=== PATIENT | female | born 1960 | race Caucasian/White ===

== ENCOUNTER 2017-05-25 14:25 | Emergency (ER) | payer SELFPAY ==
[2017-05-25] MEDS ORDERED: HUMULIN R 100 UNIT/ML VIAL SC ONE (14:26)
[2017-05-25] MEDS ORDERED: 0.9 % SODIUM CHLORIDE 1,000 ML BAG IV ONE ×2 (14:36→16:04)
--- NOTE | 2017-05-25 14:43 | Emergency Department Record ---
History of Present Illness - General Chief Complaint: Back Pain/Injury Stated Complaint: BACK SPASMS,LOW BLOOD PRESSURE Time Seen by Provider: 05/25/17 14:35 Source: Patient Mode of Arrival: Ambulatory Limitations: No limitations - History of Present Illness Initial comments: 57 yo female presents with multiple concerns. She is a known diabetic with IBS. She has had a cough for about 10 days. The cough has been non productive. No fevers. She has had 3 days of nausea and vomiting intermittently with some abdominal cramps. She has had urinary frequency. Vaginal discharge. back spasms. She has not been on any prescription for her diabetes for several months due to no medical insurance. Her blood sugar has been elevated today to over 300. She was seen in the [facility] care and sent to the ED. She has been lightheaded with standing. No syncope. -: Days(s) Location: Other Radiation: Non-Radiating Quality: Other Consistency: Constant Improves with: None Worsens with: Other Associated Symptoms: Denies other symptoms - [place] Coma Scale Eye Response: (4) Open spontaneously Motor Response: (6) Obeys commands Verbal Response: (5) Oriented [place] Total: 15 - Related Data Previous Rx's Medication Instructions Recorded Glipizide 5 mg PO DAILY #30 tablet 05/25/17 Metronidazole [Flagyl] 500 mg PO BID #13 tablet 05/25/17 Ondansetron [Zofran Odt] 4 mg PO Q8H #15 tab.rapdis 05/25/17 Allergies Allergy/AdvReac Type Severity Reaction Status Date / Time codeine Allergy Intermediate hives Verified 05/25/17 14:36 meperidine HCl [From Demerol] Allergy Intermediate hives Verified 05/25/17 14:36 milk Allergy Intermediate ABDOMINAL Verified 05/25/17 14:36 PAIN morphine Allergy Intermediate HIVES Verified 05/25/17 14:36 Penicillins Allergy Intermediate hives Verified 05/25/17 14:36 sulfamethoxazole Allergy vomiting Verified 05/25/17 14:36 [From Bactrim] trimethoprim [From Bactrim] Allergy vomiting Verified 05/25/17 14:36 Travel Screening - Travel/Exposure Within Last 30 Days Have you traveled within the last 30 days?: No Review of Systems Constitutional: Reports: Malaise, Weakness. Denies: Chills Eyes: Denies: Eye discharge, Eye pain, Vision change ENT: Reports: Congestion Respiratory: Reports: Cough, Dyspnea. Denies: Hemoptysis, Stridor, Wheezes Cardiovascular: Denies: Chest pain, Palpitations, Syncope Endocrine: Reports: Fatigue, Polyuria Gastrointestinal: Reports: Abdominal pain, Diarrhea, Nausea, Vomiting Genitourinary: Reports: Dysuria, Urgency Musculoskeletal: Reports: Back pain. Denies: Arthralgia, Joint swelling, Myalgia Skin: Denies: Bruising, Change in color, Rash Neurological: Denies: Numbness, Weakness Psychiatric: Denies: Anxiety Hematological/Lymphatic: Denies: Blood Clots, Easy bleeding, Easy bruising, Swollen glands Past Medical History - SOCIAL HISTORY Smoking Status: Light tobacco smoker (<10/day) - RESPIRATORY Hx Respiratory Disorders: Yes Hx Asthma: Yes Hx COPD: Yes - CARDIOVASCULAR Hx Cardio Disorders: Yes Hx Hypertension: Yes Comment:: high cholesterol - NEURO Hx Neuro Disorders: No - GI Hx GI Disorders: Yes Hx Reflux: Yes Hx Irritable Bowel: Yes - Hx Genitourinary Disorders: Yes Hx UTI: Yes - ENDOCRINE Hx Endocrine Disorders: Yes Hx Diabetes: Yes (Borderline) - MUSCULOSKELETAL Hx Musculoskeletal Disorders: Yes Hx Arthritis: Yes - PSYCH Hx Psych Problems: Yes Hx Anxiety: Yes Hx Depression: Yes - HEMATOLOGY/ONCOLOGY Hx Hematology/Oncology Disorders: No Family Medical History Any Significant Family History?: Yes Family Hx Comment (NOT TO BE USED IN PLACE OF ITEMS BELOW): mom w/ sclerderma Hx Cancer: Brother/Sister Hx Stroke: Father Physical Exam - General General Appearance: Alert, Oriented x3, Cooperative, No acute distress Limitations: No limitations - Head Head exam: Normal inspection - Eye Eye exam: Normal appearance, PERRL. negative: Conjunctival injection - ENT ENT exam: Normal exam, Mucous membranes moist Ear exam: Normal external inspection Nasal Exam: Discharge. negative: Normal inspection Mouth exam: Normal external inspection Teeth exam: Normal inspection Throat exam: Normal inspection. negative: Tonsillar erythema, Tonsillar exudate - Neck Neck exam: Normal inspection, Full ROM. negative: Tenderness - Respiratory Respiratory exam: Decreased breath sounds, Rhonchi. negative: Normal lung sounds bilaterally, Accessory muscle use, Prolonged expiratory - Cardiovascular Cardiovascular Exam: Regular rate, Normal rhythm, Normal heart sounds - GI/Abdominal GI/Abdominal exam: Soft. negative: Guarding, Rebound, Rigid, Tenderness - Rectal Rectal exam: Deferred - exam: Vaginal discharge, Vaginal erythema. negative: Adnexal tenderness (L) , Adnexal tenderness (R), Cervical discharge, cervical motion tenderness, Normal speculum exam, Vaginal bleeding - Extremities Extremities exam: Normal inspection, Full ROM, Normal capillary refill. negative: Tenderness - Back Back exam: Reports: Normal inspection, Full ROM. Denies: Muscle spasm, Rash noted, Tenderness - Neurological Neurological exam: Alert, Normal gait, Oriented X3 - Psychiatric Psychiatric exam: Normal affect, Normal mood - Skin Skin exam: Dry, Intact, Normal color, Warm Course Vital Signs 05/25/17 14:29 Temperature 97.8 F Pulse Rate 91 H Respiratory 18 Rate Blood Pressure 126/88 Pulse Ox 96 - Reevaluation(s) Reevaluation #1: 05/25/17 15:13 no acute changes on the CBC the pH is 7.36 05/25/17 15:36 The labs were reviewed No acute changes on the CBC Sodium 130 AG 20 Normal HCO3 Mg 2.1 Lipase 66 pH is 7.36 05/25/17 16:29 Wet Prep: Clue Cells 05/25/17 16:48 The second liter of fluid was complete The glucose is down to 231 No ketones Normal pH No DKA given no acidosis. Medical Decision Making - Lab Data Result diagrams: 05/25/17 14:55 05/25/17 14:55 Disposition Disposition: Discharge Clinical Impression: Hyperglycemia, Bacterial vaginosis, Bronchitis Disposition: Home, Self-Care Condition: (1) Good Additional Instructions: Call for close follow up of you ER visit with your doctor Return if worse, fevers, vomiting or concerns Start the Glipizide daily as directed Check your sugars daily. Prescriptions: Glipizide 5 mg PO DAILY #30 tablet Metronidazole [Flagyl] 500 mg PO BID #13 tablet Ondansetron [Zofran Odt] 4 mg PO Q8H #15 tab.rapdis Referrals: AMI RIVERA PA [Primary Care Provider] - Forms: Patient Portal Access Time of Disposition: 17:05 Quality - Quality Measures Quality Measures: N/A - Blood Pressure Screening Does Patient Have Any of the Following: No Blood Pressure Classification: Pre-Hypertensive BP Reading Systolic Measurement: 126 Diastolic Measurement: 88 Screening for High Blood Pressure: < Pre-Hypertensive BP, F/U Documented > [ [id number]] Pre-Hypertensive Follow-up Interventions: Referral to alternative/primary care provider.
[2017-05-25 15:05] LABS: BASO % 0.9 % (0-6); EOS % 1.1 % (0-6); GRAN % 71.2 % (47-80); HEMATOCRIT 42.2 % (35.0-47.0); HEMOGLOBIN 15.2 gm/dl (11.6-16.0); MEAN CELL VOLUME 87.4 fl (81-97); MEAN CORPUSCULAR HEMOGLOBIN 31.5 pg (27-33); MEAN PLATELET VOLUME 10.4 fl (7.4-10.4); MONO % 7.8 % (0-9); PLATELET COUNT 412 K/uL (130-400); RED BLOOD COUNT 4.83 M/uL (3.80-5.40); RED CELL DISTRIBUTION WIDTH 12.4 % (11.5-14.5); WHITE BLOOD COUNT W/O DIFF 11.7 K/uL (4.2-12.2)
[2017-05-25 15:09] LABS: URINE APPEARANCE CLEAR; URINE BILIRUBIN NEGATIVE (NEGATIVE); URINE BLOOD NEGATIVE (NEGATIVE); URINE COLOR YELLOW; URINE KETONE 40 mg/dL (NEGATIVE); URINE LEUKOCYTE ESTERASE NEGATIVE (NEGATIVE); URINE NITRITE NEGATIVE (NEGATIVE); URINE PROTEIN TRACE (NEGATIVE); URINE UROBILINOGEN 0.2 E.U./dL (0.20 - 1.00)
[2017-05-25 15:13] LABS: URINE GLUCOSE (UA) >=1000 mg/dL (NEGATIVE)
[2017-05-25 15:14] LABS: URINE BACTERIA 1+; URINE MUCUS MODERATE; URINE RBC 0 - 2 (NONE SEEN); URINE WBC 0 - 2 (0-2/hpf)
[2017-05-25 15:23] LABS: BLOOD UREA NITROGEN 27 mg/dL (6-20); CREATININE 0.9 mg/dL (0.5-0.9); EST GLOMERULAR FILTRATION RATE > 60 mL/min; TOTAL PROTEIN 7.9 g/dL (6.6-8.7)
[2017-05-25 15:25] LABS: GLUCOSE,RANDOM 327 mg/dL (74-109)
[2017-05-25 15:28] LABS: ALBUMIN 5.3 g/dL (4.0-5.0); ALKALINE PHOSPHATASE 114 U/L (35-104); ALT/SGPT 14 U/L (<33); AST/SGOT 13 U/L (10.0-35.0); LIPASE 66 U/L (13-60)
[2017-05-25] MEDS ORDERED: HUMULIN R 100 UNIT/ML VIAL SQ ONE (15:49)
[2017-05-25 16:25] LABS: ACETONE,SERUM NEGATIVE (NEGATIVE)
[2017-05-25] MEDS ORDERED: METRONIDAZOLE 250 MG TABLET PO ONE (16:30)
--- NOTE | 2017-05-26 14:42 | RADIOLOGY REPORT ---
EXAM: CHEST, TWO VIEWS HISTORY: COUGH. TECHNIQUE: Frontal and lateral views of the chest were obtained. Comparison: Prior chest from 02/25/17. FINDINGS: The heart size is normal. The lungs are clear. No pneumothorax. IMPRESSION: NEGATIVE CHEST EXAMINATION. JOB NUMBER: [id number] MTDD
== END 2017-05-25 17:26 | disposition home or self-care (01) ==
LOC: ER 14:25
DX: E11.65 Type 2 diabetes mellitus with hyperglycemia (principal); N76.0 Acute vaginitis; J20.9 Acute bronchitis, unspecified; R42 Dizziness and giddiness; I10 Essential (primary) hypertension; Z79.84 Long term (current) use of oral hypoglycemic drugs; F17.210 Nicotine dependence, cigarettes, uncomplicated
CPT/HCPCS: 99284 ×2; 96372; 83735; 82800; 83690; 85025; 80053; 36416; 81001; 82009; 82948; 71046; Q0111; J1815; 87210; J7030

== ENCOUNTER 2017-12-09 07:08 | Day surgery (SDC) | payer OTHER ==
[2017-12-09] MEDS ORDERED: LIDOCAINE 2% MDV (20MG/ML) 20ML VIAL IV ONE (07:09)
[2017-12-09] MEDS ORDERED: PROPOFOL 10 MG/ML VIAL IV ONE (07:09)
--- NOTE | 2017-12-14 15:49 | Operative Note ---
DATE OF SURGERY: OPERATION: COLONOSCOPY with cold snare polypectomy. PREOPERATIVE DIAGNOSIS: Personal history of colon polyps and family history of colon cancer. POSTOPERATIVE DIAGNOSIS: Sigmoid colon polyp. SPECIMENS: Sigmoid colon. ESTIMATED BLOOD LOSS: Minimum. PREPARATION QUALITY: Excellent. COMPLICATIONS: None apparent. PROCEDURE: After informed consent was obtained from the patient, she was placed in the left lateral decubitus position in the endoscopy suite, sedated and monitored by the department of anesthesia. Digital rectal examination was unremarkable. A well-lubricated [id number] colonoscope was inserted into the rectum and advanced to the cecum. Preparation quality was excellent. The cecum, ileocecal valve, ascending colon, transverse colon, and descending colon were unremarkable. The sigmoid colon revealed a 5 mm sessile polyp which was removed with a cold snare. The polyp was retrieved. Bleeding was minimal. The remainder of the sigmoid colon and rectum were unrevealing. J-turn views of the anorectum were unremarkable. The endoscope was straightened, the rectal ampulla deflated, and the endoscope was removed. RECOMMENDATIONS: The patient should resume her medications and diet. She should undergo repeat exam in 3-5 years pending tissue histology. As always, thank you for allowing me to participate in the healthcare of your patients. CC: AIDA Shi
== END 2017-12-09 09:08 | disposition home or self-care (01) ==
LOC: HOP 07:08
PROVIDERS: ATTEND Internal Medicine Gastroenterology
DX: Z12.11 Encounter for screening for malignant neoplasm of colon (principal); Z80.0 Family history of malignant neoplasm of digestive organs; Z86.010 Personal history of colon polyps; D12.5 Benign neoplasm of sigmoid colon; E11.9 Type 2 diabetes mellitus without complications; I10 Essential (primary) hypertension; E78.00 Pure hypercholesterolemia, unspecified; F32.9 Major depressive disorder, single episode, unspecified

== ENCOUNTER 2018-03-24 12:37 | Inpatient (IN) | payer OTHER ==
--- NOTE | 2018-03-24 12:58 | Emergency Department Record ---
History of Present Illness - General Chief complaint: Nausea, Vomiting, Diarrhea Stated complaint: VOMITING Time Seen by Provider: 03/24/18 12:53 Source: Patient Mode of Arrival: Ambulatory Limitations: No limitations - History of Present Illness Initial comments: 57 yo female presents with cough for about three weeks. The cough has been loose and rattles with wheezing. She was tested and negative for influenza. She saw her PCP and the [facility]. She has completed antibiotics twice and steroids twice. No fever. NO chest pain. In the last day she has developed nausea and vomiting as well. No diarrhea. No abdominal pain. She has COPD and is a smoker. MD complaint: Nausea, Vomiting Onset/Timin -: Week(s) Description of Vomiting: Other Associated Abdominal Pain: Yes Location: Diffuse Radiation: None Severity: Mild Severity scale (1-10): 4 Quality: Other Consistency: Constant Improves with: None Worsens with: None Associated Symptoms: Cough, Fever/chills, Loss of appetite, Nausea/vomiting, Weakness, Other - Related Data Allergies Allergy/AdvReac Type Severity Reaction Status Date / Time meperidine HCl [From Demerol] Allergy Intermediate hives Verified 03/24/18 13:12 milk Allergy Intermediate ABDOMINAL Verified 03/24/18 13:12 PAIN morphine Allergy Intermediate HIVES Verified 03/24/18 13:12 Penicillins Allergy Intermediate hives Verified 03/24/18 13:12 codeine Allergy HIVES Verified 03/24/18 13:12 sulfamethoxazole Allergy HIVES Verified 03/24/18 13:12 [From Bactrim] trimethoprim [From Bactrim] Allergy vomiting Verified 03/24/18 13:12 Travel Screening - Travel/Exposure Within Last 30 Days Have you traveled within the last 30 days?: No - Travel/Exposure Within Last Year Have you traveled outside the [place] in the last year?: No - Additonal Travel Details Have you been exposed to anyone with a communicable illness?: No - Travel Symptoms Symptom Screening: Fever (Subjective), Weakness, Vomiting, Stomach Pain, Chills Review of Systems Constitutional: Reports: Malaise, Weakness. Denies: Chills Eyes: Denies: Eye discharge ENT: Reports: Congestion Respiratory: Reports: Cough, Dyspnea, Wheezes Cardiovascular: Denies: Chest pain, Edema, Palpitations, Syncope Endocrine: Reports: Fatigue Gastrointestinal: Reports: Nausea, Vomiting. Denies: Abdominal pain, Constipation, Diarrhea, Hematemesis, Hematochezia, Melena Genitourinary: Denies: Dysuria, Urgency Musculoskeletal: Denies: Arthralgia, Back pain, Myalgia Skin: Denies: Bruising, Change in color, Rash Neurological: Denies: Headache Psychiatric: Denies: Anxiety Hematological/Lymphatic: Denies: Blood Clots, Easy bleeding, Easy bruising Past Medical History - SOCIAL HISTORY Smoking Status: Light tobacco smoker (<10/day) Alcohol Use: None Drug Use: None - RESPIRATORY Hx Respiratory Disorders: Yes Hx Asthma: Yes Hx COPD: Yes - CARDIOVASCULAR Hx Cardio Disorders: Yes Hx Hypertension: Yes Hx Irregular Heartbeat: Yes (slight irregular-no treatment) Comment:: high cholesterol - NEURO Hx Neuro Disorders: No Hx Headaches: Yes - GI Hx GI Disorders: Yes Hx Abdominal Pain: Yes (with IBS) Hx Reflux: Yes Hx Irritable Bowel: Yes Hx Rectal Bleeding: Yes (occ) Hx Wt Loss/Wt Gain: Yes (75 lb loss over 1 year) Hx of Polyps: Yes Comment:: constipation/diarrhea with IBS - Hx Genitourinary Disorders: Yes Hx UTI: Yes - ENDOCRINE Hx Endocrine Disorders: Yes Hx Diabetes: Yes (Borderline) - MUSCULOSKELETAL Hx Musculoskeletal Disorders: Yes Hx Arthritis: Yes - PSYCH Hx Psych Problems: Yes Hx Anxiety: Yes Hx Depression: Yes - HEMATOLOGY/ONCOLOGY Hx Hematology/Oncology Disorders: No Family Medical History Any Significant Family History?: Yes Family Hx Comment (NOT TO BE USED IN PLACE OF ITEMS BELOW): mom w/ sclerderma Hx Cancer: Brother/Sister *Cancer Comment: sister-melanoma, 1/2 brother-colon cancer Hx Depression: Brother/Sister Hx Heart Disease: Father *Heart Comment: chf Hx HTN: Brother/Sister Hx Resp Disorders: Mother Hx Stroke: Father *Stroke Comment: x3 Physical Exam - General General Appearance: Alert, Oriented x3, Cooperative, No acute distress Limitations: No limitations - Head Head exam: Atraumatic - Eye Eye exam: Normal appearance, PERRL - ENT ENT exam: Normal exam, Mucous membranes moist Ear exam: Normal external inspection Nasal Exam: Normal inspection Mouth exam: Normal external inspection - Neck Neck exam: Normal inspection, Full ROM. negative: Tenderness - Respiratory Respiratory exam: Accessory muscle use, Decreased breath sounds, Prolonged expiratory, Rhonchi, Wheezes. negative: Normal lung sounds bilaterally, Respiratory distress, Stridor - Cardiovascular Cardiovascular Exam: Regular rate, Normal rhythm, Normal heart sounds Peripheral Pulses: 2+: Radial (R), Radial (L) - GI/Abdominal GI/Abdominal exam: Soft. negative: Tenderness - Rectal Rectal exam: Deferred - exam: Deferred - Extremities Extremities exam: Normal inspection, Full ROM, Normal capillary refill. negative: Tenderness - Back Back exam: Denies: CVA tenderness (R), CVA tenderness (L) - Neurological Neurological exam: Alert, Oriented X3 - Psychiatric Psychiatric exam: Normal affect, Normal mood - Skin Skin exam: Dry, Intact, Normal color, Warm Course Vital Signs 03/24/18 12:44 Temperature 97.7 F Pulse Rate 109 H Respiratory 18 Rate Blood Pressure 94/69 Pulse Ox 98 - Reevaluation(s) Reevaluation #1: 03/24/18 13:44 CBC reviewed WBC is 23.7 UA spec gravity 1.030 with ketones and protein. 03/24/18 14:10 Delays will occur in lab due to the analyzer is down. Sample will be sent to [facility]. 03/24/18 14:12 Lab called. Lactic acid can no be run and will not be accepted at an outside lab due to time delays in running the sample it will be invalid. 03/24/18 14:18 2nd liter ordered given UA findings and BP. Patient informed about lab delays. 03/24/18 14:19 The CXR was read as negative 03/24/18 14:34 Accu check 169. Labs pending. 03/24/18 15:13 Normal pH at 7.33 Acetone Negative Send out labs pending. 03/24/18 16:55 The labs were finally reported due to being sent out with [facility] down analyzer CR is 1.6 BUN is 36 Glucose is 210. I recommend admission for dehydration, renal insufficiency, and reactive airway disease 03/24/18 19:20 The repeat lactic acid improved to 4.4 form 5.6 The vitals at this time are normal and she is afebrile Jane Ruiz was up dated Her Metformin will be held as well Medical Decision Making - Lab Data Result diagrams: 03/24/18 13:15 03/24/18 13:15 Disposition Disposition: Admit Clinical Impression: Reactive airway disease, COPD (chronic obstructive pulmonary disease), Dehydration Disposition: Still a Patient at [facility] Decision to Admit: Admit from ER Decision to Admit Date: 03/24/18 Decision to Admit Time: 16:57 Condition: (1) Good Time of Disposition: 16:58 Quality - Quality Measures Quality Measures: N/A - Blood Pressure Screening Does Patient Have Any of the Following: Active Dx of HTN Blood Pressure Classification: Normal BP Reading Systolic Measurement: 94 Diastolic Measurement: 69 Screening for High Blood Pressure: Patient Exclusion, Hx of HTN [G9744]
[2018-03-24] MEDS ORDERED: ONDANSETRON HCL IV 4 MG/2 ML VIAL IVP ONE (13:07)
[2018-03-24] MEDS ORDERED: METHYLPREDNISOLONE PF 125MG/VIAL IVP ONE (13:07)
[2018-03-24] MEDS ORDERED: IPRATROPIUM/ALBUTEROL (0.5MG/3MG) NEB INH ONE (13:07)
[2018-03-24] MEDS ORDERED: 0.9 % SODIUM CHLORIDE 1,000 ML BAG IV ONE ×2 (13:08→14:06)
[2018-03-24 13:29] LABS: HEMATOCRIT 39.1 % (35.0-47.0); HEMOGLOBIN 13.3 gm/dl (11.6-16.0); MEAN CELL VOLUME 90.7 fl (81-97); MEAN CORPUSCULAR HEMOGLOBIN 30.9 pg (27-33); MEAN PLATELET VOLUME 9.2 fl (7.4-10.4); PLATELET COUNT 475 K/uL (130-400); RED BLOOD COUNT 4.31 M/uL (3.80-5.40); RED CELL DISTRIBUTION WIDTH 12.6 % (11.5-14.5); URINE APPEARANCE CLEAR; URINE BILIRUBIN SMALL (NEGATIVE); URINE BLOOD NEGATIVE (NEGATIVE); URINE COLOR YELLOW; URINE KETONE 15 mg/dL (NEGATIVE); URINE LEUKOCYTE ESTERASE TRACE (NEGATIVE); URINE NITRITE NEGATIVE (NEGATIVE); URINE UROBILINOGEN 0.2 E.U./dL (0.20 - 1.00)
[2018-03-24 13:34] LABS: WHITE BLOOD COUNT W/O DIFF 23.7 K/uL (4.2-12.2)
[2018-03-24 13:37] LABS: URINE RBC NONE SEEN (NONE SEEN); URINE WBC 0 - 2 (0-2/hpf)
[2018-03-24 13:55] LABS: PLATELET ESTIMATE NORMAL (NORMAL)
[2018-03-24 14:53] LABS: ACETONE,SERUM NEGATIVE (NEGATIVE)
[2018-03-24] MEDS ORDERED: CLINDAMYCIN 600MG/50ML PREMIX 600 MG/50 ML BAG IVPB ONE (15:18)
[2018-03-24 16:50] LABS: CREATININE 1.6 mg/dL (0.5-0.9)
[2018-03-24 16:54] LABS: LACTIC ACID 5.6 mmol/L (0.5-2.2)
[2018-03-24] MEDS ORDERED: ALBUTEROL SULFATE (0.083%) 2.5 MG/3 ML NEB INH PRN (18:33)
[2018-03-24] MEDS ORDERED: ATORVASTATIN 20 MG TABLET PO SCH (18:33)
[2018-03-24] MEDS ORDERED: ONDANSETRON HCL IV 4 MG/2 ML VIAL IVP PRN (18:33)
[2018-03-24] MEDS ORDERED: BENZONATATE 100 MG CAPSULE PO PRN (18:33)
[2018-03-24] MEDS ORDERED: METHYLPREDNISOLONE PF 125MG/VIAL IVP SCH (18:33)
[2018-03-24] MEDS: CEFTRIAXONE 1GM/50ML BAG 1 GM/50 ML BAG IVPB SCH (20:49)
[2018-03-24] MEDS: IPRATROPIUM/ALBUTEROL (0.5MG/3MG) NEB INH SCH ×2 (21:03)
[2018-03-24] MEDS ORDERED: GLIPIZIDE 5 MG TABLET PO SCH (22:00)
[2018-03-24] MEDS ORDERED: METFORMIN ER HCL 500 MG TAB.ER.24H PO SCH (22:00)
[2018-03-24] MEDS: BUPROPION HCL 150 MG TAB.SR.12H PO SCH (22:01)
[2018-03-24] MEDS: ACETAMINOPHEN 325 MG TAB PO PRN (22:06)
[2018-03-24] MEDS: DIPHENHYDRAMINE HCL 25 MG CAPSULE PO SCH (22:12)
[2018-03-25] MEDS: IPRATROPIUM/ALBUTEROL (0.5MG/3MG) NEB INH SCH ×3 (02:00→10:01)
[2018-03-25] MEDS: 0.9 % SODIUM CHLORIDE 1000ML 1,000 ML IV PRN ×2 (04:09→13:11)
[2018-03-25] MEDS: METHYLPREDNISOLONE PF 125MG/VIAL IVP SCH ×3 (05:27→21:35)
[2018-03-25 06:48] LABS: HEMATOCRIT 31.6 % (35.0-47.0); HEMOGLOBIN 10.7 gm/dl (11.6-16.0); MEAN CELL VOLUME 91.6 fl (81-97); MEAN CORPUSCULAR HGB CONC 33.9 g/dl (32-36); MEAN PLATELET VOLUME 9.2 fl (7.4-10.4); PLATELET COUNT 327 K/uL (130-400); RED BLOOD COUNT 3.45 M/uL (3.80-5.40); RED CELL DISTRIBUTION WIDTH 12.6 % (11.5-14.5); WHITE BLOOD COUNT W/O DIFF 16.2 K/uL (4.2-12.2)
[2018-03-25 07:02] LABS: ALB/GLOB RATIO 1.7 (1.1-1.8); ALBUMIN 4.2 g/dL (4.0-5.0); ALKALINE PHOSPHATASE 78 U/L (45-87); ALT/SGPT 22 U/L (<33); AST/SGOT 11 U/L (10.0-35.0); BLOOD UREA NITROGEN 24 mg/dL (6-20); CREATININE 0.7 mg/dL (0.5-0.9); EST GLOMERULAR FILTRATION RATE > 60 mL/min; GLUCOSE,RANDOM 238 mg/dL (74-109); TOTAL PROTEIN 6.7 g/dL (6.6-8.7)
--- NOTE | 2018-03-25 07:15 | RADIOLOGY REPORT ---
EXAM: CHEST, TWO VIEWS HISTORY: DIFFICULTY IN BREATHING. TECHNIQUE: Frontal and lateral views of the chest were performed. Comparison: 03/18/18. FINDINGS: The heart size is normal. The lung restrepo are clear. No infiltrate or pleural effusion. The osseous structures are normal. IMPRESSION: NEGATIVE CHEST EXAMINATION. JOB NUMBER: [id number] MTDD
--- NOTE | 2018-03-25 08:14 | History & Physical ---
History of Present Illness - Date of Service Date of Service for History & Physical: 03/25/18 - History of Present Illness Admitting Diagnosis: COPD, Vomiting, Dehydration History of Present Illness: 57 yo female presents for admission for COPD exacerbation, lactic acidosis, ERIC , and dehydration Reports 3 weeks of cough, wheezing and more recently N/V. Denies abd pain, diarrhea, or fever/chills. Has failed outpatient treatment of 2 rounds of steroids and 2 rounds of antibiotics. PMH COPD, smoker, HTN, DM. 03/24/18 Pt presented to ER for cough, N/V, and malaise. CXR read as negative (awaiting official report). BP 94/69, HR 109, RR 18, 98% RA, 97.7F. BP Labs were delayed r/t equipment malfunctions in lab. WBC 23.7, Hgb 13.3, Hct 39.1, Plt 475, Neutrophils 81 (bands 1) Na 135, K 4.3, Cl 89, Co224, Anion Gap 22, BUN 36, Creatinine 1.6, GFR 36, glucose 210, Ca 11 Lactic Acid 5.6, repeated 4.4 (4 hours later after fluids) UA indicates dehydration with protein, glucose, ketones, and specific gravity > 1.030, trace leuk BC x2 pending, Pt given 2 L NS, Zofran 4mg IVP, Solumedrol 125mg IVP, DuoNeb Orders started by ER, Rocephin 1GM to start inpt, solumedrol 60mg IVP qd and resume glipizide in the AM. Repeat labs, continue NS @125, nausea meds PRN. RN given instructions to monitor BP after abx infusion completed. 03/25/18 Pt resting in bed, mild distress with coughing but no n/v since starting IVF. Lactic acid has improved to 3.1, RFTs normalizing at BUN 24, Creatinine 0.7, GFR >60. Continue to hold metformin and restarting glipizide. Continue IVF, Rocephin, IV steroids, and alb neb tx. Adding Incruse qd. Pt has milk allergy but reports mild symptoms and can tolerate cheese and other milk products. Will monitor for systemic issues. PCP Hiral Lopez Travel Screening - Travel/Exposure Within Last 30 Days Have you traveled within the last 30 days?: No - Travel/Exposure Within Last Year Have you traveled outside the [place] in the last year?: No - Additonal Travel Details Have you been exposed to anyone with a communicable illness?: No - Travel Symptoms Symptom Screening: Fever (Subjective), Weakness, Vomiting, Stomach Pain, Chills Review of Systems Constitutional: Reports: Malaise, Weakness. Denies: Chills Eyes: Denies: Eye discharge ENT: Reports: Congestion Respiratory: Reports: Cough, Dyspnea, Wheezes Cardiovascular: Denies: Chest pain, Edema, Palpitations, Syncope Endocrine: Reports: Fatigue Gastrointestinal: Reports: Nausea, Vomiting. Denies: Abdominal pain, Constipation, Diarrhea, Hematemesis, Hematochezia, Melena Genitourinary: Denies: Dysuria, Urgency Musculoskeletal: Denies: Arthralgia, Back pain, Myalgia Skin: Denies: Bruising, Change in color, Rash Neurological: Denies: Headache Psychiatric: Denies: Anxiety Hematological/Lymphatic: Denies: Blood Clots, Easy bleeding, Easy bruising Past Medical History - SOCIAL HISTORY Smoking Status: Light tobacco smoker (<10/day) Alcohol Use: None Drug Use: None - RESPIRATORY Hx Respiratory Disorders: Yes Hx Asthma: Yes Hx COPD: Yes - CARDIOVASCULAR Hx Cardio Disorders: Yes Hx Hypertension: Yes Hx Irregular Heartbeat: Yes (slight irregular-no treatment) Comment:: high cholesterol - NEURO Hx Neuro Disorders: No Hx Headaches: Yes - GI Hx GI Disorders: Yes Hx Abdominal Pain: Yes (with IBS) Hx Reflux: Yes Hx Irritable Bowel: Yes Hx Rectal Bleeding: Yes (occ) Hx Wt Loss/Wt Gain: Yes (75 lb loss over 1 year) Hx of Polyps: Yes Comment:: constipation/diarrhea with IBS - Hx Genitourinary Disorders: Yes Hx UTI: Yes - ENDOCRINE Hx Endocrine Disorders: Yes Hx Diabetes: Yes (Borderline) - MUSCULOSKELETAL Hx Musculoskeletal Disorders: Yes Hx Arthritis: Yes - PSYCH Hx Psych Problems: Yes Hx Anxiety: Yes Hx Depression: Yes - HEMATOLOGY/ONCOLOGY Hx Hematology/Oncology Disorders: No Family Medical History Any Significant Family History?: Yes Family Hx Comment (NOT TO BE USED IN PLACE OF ITEMS BELOW): mom w/ sclerderma Hx Cancer: Brother/Sister *Cancer Comment: sister-melanoma, 1/2 brother-colon cancer Hx Depression: Brother/Sister Hx Heart Disease: Father *Heart Comment: chf Hx HTN: Brother/Sister Hx Resp Disorders: Mother Hx Stroke: Father *Stroke Comment: x3 H&P Meds/Allergies - Allergies Allergies: Allergies Allergy/AdvReac Type Severity Reaction Status Date / Time meperidine HCl [From Demerol] Allergy Intermediate hives Verified 03/24/18 13:12 milk Allergy Intermediate ABDOMINAL Verified 03/24/18 13:12 PAIN morphine Allergy Intermediate HIVES Verified 03/24/18 13:12 Penicillins Allergy Intermediate hives Verified 03/24/18 13:12 codeine Allergy HIVES Verified 03/24/18 13:12 sulfamethoxazole Allergy HIVES Verified 03/24/18 13:12 [From Bactrim] trimethoprim [From Bactrim] Allergy vomiting Verified 03/24/18 13:12 - Home Medications Home Medications Medication Instructions Recorded Confirmed Last Taken Atorvastatin Calcium 20 mg PO QHS 03/25/18 03/25/18 Unknown Glipizide 5 mg PO BIDWM 03/25/18 03/25/18 Unknown - Active Medications Active Medications: Current Medications Acetaminophen (Tylenol 325mg) 650 mg PO Q6H PRN PRN Reason: PAIN - MILD(1-4)/FEVER Last Admin: 03/24/18 22:06 Dose: 650 mg Albuterol Sulfate (Albuterol Sulfate) 2.5 mg INH RESP.Q4H PRN PRN Reason: DIFFICULTY IN BREATHING Albuterol/Ipratropium (Duoneb) 3 ml INH RESP.Q4H.[facility] Last Admin: 03/25/18 06:10 Dose: 3 ml Aspirin (Ecotrin (Ec)) 81 mg PO DAILY [facility] Atorvastatin Calcium (Lipitor) 20 mg PO QD [facility] Last Admin: 03/24/18 22:02 Dose: 20 mg Benzonatate (Tessalon) 100 mg PO TID PRN PRN Reason: COUGH Bupropion HCl (Wellbutrin Sr) 150 mg PO BID [facility] Last Admin: 03/24/18 22:01 Dose: 150 mg Diphenhydramine HCl (Benadryl Capsule) 50 mg PO QHS [facility] Last Admin: 03/24/18 22:12 Dose: 50 mg Enoxaparin Sodium (Lovenox) 40 mg SQ DAILY [facility] Glipizide (Glucotrol) 5 mg PO BID [facility] Sodium Chloride () 1,000 mls @ 125 mls/hr IV .Q8H PRN PRN Reason: LARGE VOLUME IV Last Admin: 03/25/18 04:09 Dose: 125 mls/hr CEFTRIAXONE 1GM/50ML BAG (Ceftriaxone 1 Gm-D5w Bag) 1 gm in 50 mls @ 100 mls/ hr IVPB Q12H [facility] Last Infusion: 03/24/18 22:04 Dose: Infused Methylprednisolone Sodium Succinate (Solu-Medrol) 60 mg IVP Q8H [facility] Last Admin: 03/25/18 05:27 Dose: 60 mg Ondansetron HCl (Zofran) 4 mg IVP Q6H PRN PRN Reason: NAUSEA Physical Exam - Vital Signs Vital Signs: Vital Signs - Last 24 Hrs Temp Pulse Pulse Resp BP BP BP 03/25/18 06:10 89 18 03/25/18 04:00 97.4 F L 98 H 17 152/66 03/25/18 02:00 80 18 03/24/18 21:55 97.5 F L 94 H 18 119/65 03/24/18 21:03 94 H 20 03/24/18 21:00 94 H 18 03/24/18 18:58 97.2 F L 91 H 16 139/80 03/24/18 16:15 79 17 115/74 03/24/18 15:21 111/57 03/24/18 14:45 103/49 03/24/18 13:55 98 H 19 86/59 03/24/18 12:44 97.7 F 109 H 18 94/69 Pulse Ox 03/25/18 06:10 03/25/18 04:00 96 03/25/18 02:00 97 03/24/18 21:55 96 03/24/18 21:03 97 03/24/18 21:00 03/24/18 18:58 95 03/24/18 16:15 97 03/24/18 15:21 03/24/18 14:45 03/24/18 13:55 03/24/18 12:44 98 - General General Appearance: Alert, Oriented x3, Cooperative, No acute distress Limitations: No limitations - Head Head exam: Atraumatic - Eye Eye exam: Normal appearance, PERRL - ENT ENT exam: Normal exam, Mucous membranes moist Ear exam: Normal external inspection Nasal Exam: Normal inspection Mouth exam: Normal external inspection - Neck Neck exam: Normal inspection, Full ROM. negative: Tenderness - Respiratory Respiratory exam: Accessory muscle use, Decreased breath sounds, Prolonged expiratory, Rhonchi, Wheezes. negative: Normal lung sounds bilaterally, Respiratory distress, Stridor - Cardiovascular Cardiovascular Exam: Regular rate, Normal rhythm, Normal heart sounds Peripheral Pulses: 2+: Radial (R), Radial (L), Dorsalis Pedis (R), Dorsalis Pedis (L) - GI/Abdominal GI/Abdominal exam: Soft. negative: Tenderness - Rectal Rectal exam: Deferred - exam: Deferred - Extremities Extremities exam: Normal inspection, Full ROM, Normal capillary refill. negative: Tenderness - Back Back exam: Denies: CVA tenderness (R), CVA tenderness (L) - Neurological Neurological exam: Alert, Oriented X3 - Psychiatric Psychiatric exam: Normal affect, Normal mood - Skin Skin exam: Dry, Intact, Normal color, Warm Results - Labs Result Diagrams: 03/25/18 06:30 03/25/18 06:30 Labs Last 24 Hours: Laboratory Results - last 24 hr 03/24/18 03/24/18 03/24/18 13:15 13:15 13:15 WBC 23.7 H* RBC 4.31 Hgb 13.3 Hct 39.1 MCV 90.7 MCH 30.9 MCHC 34.0 RDW 12.6 Plt Count 475 H MPV 9.2 Neutrophils % 81.0 H Band Neutrophils % 1.0 Eosinophils % Not Reportable Basophils % Not Reportable Lymphocytes 14.0 L Monocytes 4.0 Basophils Platelet Estimate Normal RBC Morphology Normal Eosinophil Count VBG pH Sodium 135 L Potassium 4.3 Chloride 89 L Carbon Dioxide 24.0 Anion Gap 22.0 H BUN 36 H Creatinine 1.6 H Estimated GFR 36 POC Glucose Random Glucose 210 H Lactic Acid Calcium 11.0 H Total Bilirubin AST ALT Alkaline Phosphatase Troponin T Total Protein Albumin Globulin Albumin/Globulin Ratio Urine Color Yellow Urine Appearance Clear Urine pH 5.0 Ur Specific [place] >= 1.030 Urine Protein 30 mg/dl H Urine Glucose (UA) 100 mg/dl H Urine Ketones 15 mg/dl H Urine Blood Negative Urine Nitrite Negative Urine Bilirubin Small H Urine Urobilinogen 0.2 Ur Leukocyte Esterase Trace H Urine RBC None seen Urine WBC 0 - 2 Ur Epithelial Cells 3 - 6 Acetone, Qual 03/24/18 03/24/18 03/24/18 14:25 14:25 18:34 WBC RBC Hgb Hct MCV MCH MCHC RDW Plt Count MPV Neutrophils % Band Neutrophils % Eosinophils % Basophils % Lymphocytes Monocytes Basophils Platelet Estimate RBC Morphology Eosinophil Count VBG pH 7.33 Sodium Potassium Chloride Carbon Dioxide Anion Gap BUN Creatinine Estimated GFR POC Glucose Random Glucose Lactic Acid 5.6 H 4.4 H Calcium Total Bilirubin AST ALT Alkaline Phosphatase Troponin T < 0.010 Total Protein Albumin Globulin Albumin/Globulin Ratio Urine Color Urine Appearance Urine pH Ur Specific [place] Urine Protein Urine Glucose (UA) Urine Ketones Urine Blood Urine Nitrite Urine Bilirubin Urine Urobilinogen Ur Leukocyte Esterase Urine RBC Urine WBC Ur Epithelial Cells Acetone, Qual Negative 03/25/18 03/25/18 03/25/18 06:30 06:30 06:30 WBC 16.2 H RBC 3.45 L Hgb 10.7 L Hct 31.6 L MCV 91.6 MCH 31.0 MCHC 33.9 RDW 12.6 Plt Count 327 MPV 9.2 Neutrophils % 80.0 Band Neutrophils % 0.0 Eosinophils % Not Reportable Basophils % Not Reportable Lymphocytes 14.0 L Monocytes 6.0 Basophils 0.0 Platelet Estimate RBC Morphology Eosinophil Count 0.0 VBG pH Sodium 135 L Potassium 4.2 Chloride 98 Carbon Dioxide 20.0 L Anion Gap 17.0 H BUN 24 H Creatinine 0.7 Estimated GFR > 60 POC Glucose Random Glucose 238 H Lactic Acid 3.1 H Calcium 8.8 Total Bilirubin 0.20 AST 11 ALT 22 Alkaline Phosphatase 78 Troponin T Total Protein 6.7 Albumin 4.2 Globulin 2.5 Albumin/Globulin Ratio 1.7 Urine Color Urine Appearance Urine pH Ur Specific [place] Urine Protein Urine Glucose (UA) Urine Ketones Urine Blood Urine Nitrite Urine Bilirubin Urine Urobilinogen Ur Leukocyte Esterase Urine RBC Urine WBC Ur Epithelial Cells Acetone, Qual 03/25/18 07:00 WBC RBC Hgb Hct MCV MCH MCHC RDW Plt Count MPV Neutrophils % Band Neutrophils % Eosinophils % Basophils % Lymphocytes Monocytes Basophils Platelet Estimate RBC Morphology Eosinophil Count VBG pH Sodium Potassium Chloride Carbon Dioxide Anion Gap BUN Creatinine Estimated GFR POC Glucose Cancelled Random Glucose Lactic Acid Calcium Total Bilirubin AST ALT Alkaline Phosphatase Troponin T Total Protein Albumin Globulin Albumin/Globulin Ratio Urine Color Urine Appearance Urine pH Ur Specific [place] Urine Protein Urine Glucose (UA) Urine Ketones Urine Blood Urine Nitrite Urine Bilirubin Urine Urobilinogen Ur Leukocyte Esterase Urine RBC Urine WBC Ur Epithelial Cells Acetone, Qual - Imaging and Cardiology Chest x-ray Status: Pending VTE H&P Assessment - Risk for VTE Risk for VTE: Yes Risk Level: Moderate Risk Assessment Date: 03/24/18 Risk Assessment Time: 21:00 VTE Orders Placed or Will Be Placed: Yes Plan - Inpatient Certification Inpatient Certification: Admit to inpatient care: Based on my medical assessment, after consideration of patient's risk factors (age, co-morbidities and patient presenting symptoms and acuity), I expect that this patient will remain in the hospital greater than or equal to two midnights and that the services needed warrant inpatient care because: Patient Risk Factors: hypotension, renal insufficiency, electrolyte imbalance Estimated length of stay: The patient may reasonably be expected to be discharged or transferred to a hospital within 96 hours after admission to [facility]. Services needed: telemetry, IVF, IV antibiotics, repeat lab monitoring Post hospital care (if known): [] I certify that my determination is in accordance with my understanding of Medicare requirements for reasonable and necessary inpatient services. 03/25/18 11:12 - Detailed Diagnosis and Plan (1) COPD (chronic obstructive pulmonary disease) Current Visit: Yes Status: Acute Base Code: J44.9 - CHRONIC OBSTRUCTIVE PULMONARY DISEASE, UNSPECIFIED Comment: 03/25/18 -IV rocpehin 1gm BID -alb neb, adding Incruse qd -CXR neg PNA -tx as COPD exacerbation (2) Lactic acidosis Current Visit: Yes Status: Acute Base Code: E87.2 - ACIDOSIS Comment: -lactic acid 5.6, 2L NS and repeat 4.4 -3.1 this AM, continue IVF and IV ABX, metformin D/C'd -BC preliminary negative (3) Renal insufficiency Current Visit: Yes Status: Acute Base Code: N28.9 - DISORDER OF KIDNEY AND URETER, UNSPECIFIED Comment: 03/25/18 -BUN 36, creatin 1.6, GFR 36 at admission -Repeat AM labs BUN 24, creatinin 0.7, GFR >60 -Continue IVF at 125 r/t continued lactic acidosis, repeat lactic acid 1600, will decrease fluids to 75 after lactic acid normalization -Nursing instructed to monitor for fluid overload with SOB, crackling lung sounds, or peripheral edema (4) Dehydration Current Visit: Yes Status: Acute Base Code: E86.0 - DEHYDRATION Comment: -2l NS bolus in ER, NS @ 125 continuous -encouage PO intake -monitor electrolytes and urine output (5) Full code status Current Visit: Yes Status: Acute Base Code: Z78.9 - OTHER SPECIFIED HEALTH STATUS Comment: 03/25/18 -full code (6) DVT prophylaxis Current Visit: Yes Status: Acute Base Code: [id number] - Comment: 03/25/18 -lovenox 40mg SQ qd
[2018-03-25] MEDS: CEFTRIAXONE 1GM/50ML BAG 1 GM/50 ML BAG IVPB SCH ×2 (08:30→20:10)
[2018-03-25] MEDS: GLIPIZIDE 5 MG TABLET PO SCH ×2 (09:33→20:10)
[2018-03-25] MEDS: ASPIRIN 81 MG TABEC PO SCH (09:33)
[2018-03-25] MEDS: BUPROPION HCL 150 MG TAB.SR.12H PO SCH ×2 (09:33→21:38)
[2018-03-25] MEDS: ENOXAPARIN 40 MG/0.4 ML SYR SQ SCH (09:34)
[2018-03-25] MEDS ORDERED: UMECLIDINIUM BROMIDE (INCRUSE) 62.5MCG IH SCH (10:45)
[2018-03-25] MEDS: UMECLIDINIUM BROMIDE (INCRUSE) 62.5MCG IH SCH (14:10)
[2018-03-25] MEDS: DIPHENHYDRAMINE HCL 25 MG CAPSULE PO SCH (21:34)
[2018-03-25] MEDS: ATORVASTATIN 20 MG TABLET PO SCH (21:36)
[2018-03-25] MEDS: ACETAMINOPHEN 325 MG TAB PO PRN (21:39)
[2018-03-25] MEDS ORDERED: DIPHENHYDRAMINE HCL 25 MG CAPSULE PO SCH (22:00)
[2018-03-26] MEDS: METHYLPREDNISOLONE PF 125MG/VIAL IVP SCH (05:01)
[2018-03-26 07:40] LABS: HEMATOCRIT 33.4 % (35.0-47.0); HEMOGLOBIN 11.3 gm/dl (11.6-16.0); MEAN CELL VOLUME 94.4 fl (81-97); MEAN CORPUSCULAR HEMOGLOBIN 31.9 pg (27-33); MEAN CORPUSCULAR HGB CONC 33.8 g/dl (32-36); MEAN PLATELET VOLUME 11.4 fl (7.4-10.4); RED BLOOD COUNT 3.54 M/uL (3.80-5.40); RED CELL DISTRIBUTION WIDTH 13.1 % (11.5-14.5); WHITE BLOOD COUNT W/O DIFF 12.6 K/uL (4.2-12.2)
[2018-03-26 07:56] LABS: BLOOD UREA NITROGEN 15 mg/dL (6-20); CREATININE 0.5 mg/dL (0.5-0.9); EST GLOMERULAR FILTRATION RATE > 60 mL/min; GLUCOSE,RANDOM 269 mg/dL (74-109)
[2018-03-26] MEDS ORDERED: 0.9 % SODIUM CHLORIDE 1000ML 1,000 ML IV PRN (08:19)
[2018-03-26] MEDS: ACETAMINOPHEN 325 MG TAB PO PRN ×3 (08:44→21:10)
[2018-03-26] MEDS: CEFTRIAXONE 1GM/50ML BAG 1 GM/50 ML BAG IVPB SCH ×2 (08:44→19:57)
[2018-03-26] MEDS: GLIPIZIDE 5 MG TABLET PO SCH ×2 (08:44→17:55)
[2018-03-26] MEDS: ASPIRIN 81 MG TABEC PO SCH (09:16)
[2018-03-26] MEDS: BUPROPION HCL 150 MG TAB.SR.12H PO SCH ×2 (09:16→21:11)
[2018-03-26] MEDS: ENOXAPARIN 40 MG/0.4 ML SYR SQ SCH (09:16)
[2018-03-26] MEDS: UMECLIDINIUM BROMIDE (INCRUSE) 62.5MCG IH SCH (09:35)
[2018-03-26] MEDS: PREDNISONE 20 MG TAB PO SCH (13:11)
[2018-03-26] MEDS: HYDROXYZINE PAMOATE 25 MG CAPSULE PO PRN ×2 (13:17→21:11)
--- NOTE | 2018-03-26 14:40 | Physician Progress Note ---
Subjective - Date Date of Physician Progress Note: 03/27/18 Objective - Vital Signs Vital Signs: Vital Signs - Last 24 Hrs Temp Pulse Pulse Resp BP BP Pulse Ox 03/26/18 09:39 82 18 97 03/26/18 09:30 97.5 F L 91 H 16 134/81 134/81 98 03/26/18 09:00 91 H 18 03/26/18 05:00 97.5 F L 79 16 151/79 96 03/25/18 21:00 97.5 F L 96 H 16 127/67 97 - General General Appearance: Alert, Oriented x3, Cooperative, No acute distress Limitations: No limitations - Head Head exam: Atraumatic - Eye Eye exam: Normal appearance, PERRL - ENT ENT exam: Normal exam, Mucous membranes moist Ear exam: Normal external inspection Nasal Exam: Normal inspection Mouth exam: Normal external inspection - Neck Neck exam: Normal inspection, Full ROM. negative: Tenderness - Respiratory Respiratory exam: Accessory muscle use, Decreased breath sounds, Prolonged expiratory, Rhonchi, Wheezes. negative: Normal lung sounds bilaterally, Respiratory distress, Stridor - Cardiovascular Cardiovascular Exam: Regular rate, Normal rhythm, Normal heart sounds Peripheral Pulses: 2+: Radial (R), Radial (L), Dorsalis Pedis (R), Dorsalis Pedis (L) - GI/Abdominal GI/Abdominal exam: Soft. negative: Tenderness - Rectal Rectal exam: Deferred - exam: Deferred - Extremities Extremities exam: Normal inspection, Full ROM, Normal capillary refill. negative: Tenderness - Back Back exam: Denies: CVA tenderness (R), CVA tenderness (L) - Neurological Neurological exam: Alert, Oriented X3 - Psychiatric Psychiatric exam: Normal affect, Normal mood - Skin Skin exam: Dry, Intact, Normal color, Warm Assessment and Plan - Assessment and Plan (1) COPD (chronic obstructive pulmonary disease) Current Visit: Yes Status: Acute Base Code: J44.9 - CHRONIC OBSTRUCTIVE PULMONARY DISEASE, UNSPECIFIED Comment: 03/25/18 -IV rocpehin 1gm BID -alb neb, adding Incruse qd -CXR neg PNA -tx as COPD exacerbation 03/26/18 -started Incruse, tolerating well, reports decreased sputum production -continue rocephin IVP, lactic acid and WBC still slightly elevated -IVF d/c'd encouraged PO intake (2) Lactic acidosis Current Visit: Yes Status: Acute Base Code: E87.2 - ACIDOSIS Comment: -lactic acid 5.6, 2L NS and repeat 4.4 -3.1 this AM, continue IVF and IV ABX, metformin D/C'd -BC preliminary negative 03/26/18 -Lactic acid 2.2 this AM -D/C IVF, encouraged PO intake -BC results neg, pending final results (3) Renal insufficiency Current Visit: Yes Status: Acute Base Code: N28.9 - DISORDER OF KIDNEY AND URETER, UNSPECIFIED Comment: 03/25/18 -BUN 36, creatin 1.6, GFR 36 at admission -Repeat AM labs BUN 24, creatinin 0.7, GFR >60 -Continue IVF at 125 r/t continued lactic acidosis, repeat lactic acid 1600, will decrease fluids to 75 after lactic acid normalization -Nursing instructed to monitor for fluid overload with SOB, crackling lung sounds, or peripheral edema 03/26/18 -RFTs improved BUN 15, Cr 0.5, GFR>60 -making urine, weakness improved but not resovled (4) Dehydration Current Visit: Yes Status: Acute Base Code: E86.0 - DEHYDRATION Comment: -2l NS bolus in ER, NS @ 125 continuous -encouage PO intake -monitor electrolytes and urine output 03/26/18 -IVF at 125 decreased r/t improved PO intake, RFTs and decreased lactic acid -Glucose and electrolytes normalizing (5) Full code status Current Visit: Yes Status: Acute Base Code: Z78.9 - OTHER SPECIFIED HEALTH STATUS Comment: 03/26/18 -full code (6) DVT prophylaxis Current Visit: Yes Status: Acute Base Code: [id number] - Comment: 03/26/18 -lovenox 40mg SQ qd Results - Labs Result Diagrams: 03/27/18 07:45 03/27/18 07:45 Labs Last 24 Hours: Laboratory Results - last 24 hr 03/25/18 03/26/18 03/26/18 16:50 07:30 07:30 WBC 12.6 H RBC 3.54 L Hgb 11.3 L Hct 33.4 L MCV 94.4 MCH 31.9 MCHC 33.8 RDW 13.1 Plt Count Not Reportable MPV 11.4 H Neutrophils % 92.0 H Eosinophils % Not Reportable Basophils % Not Reportable Lymphocytes 6.0 L Monocytes 2.0 Sodium 134 L Potassium 4.7 H Chloride 101 Carbon Dioxide 17.0 L Anion Gap 16.0 BUN 15 Creatinine 0.5 Estimated GFR > 60 Random Glucose 269 H Lactic Acid 3.1 H Cancelled Calcium 8.6 03/26/18 07:30 WBC RBC Hgb Hct MCV MCH MCHC RDW Plt Count MPV Neutrophils % Eosinophils % Basophils % Lymphocytes Monocytes Sodium Potassium Chloride Carbon Dioxide Anion Gap BUN Creatinine Estimated GFR Random Glucose Lactic Acid 2.2 Calcium DVT/PE Assessment - Risk for VTE Risk for VTE: No Risk Level: Moderate Risk Assessment Date: 03/24/18 Risk Assessment Time: 21:00 VTE Orders Placed or Will Be Placed: Yes - Active Medicaitons Current Medications: Current Medications Acetaminophen (Tylenol 325mg) 650 mg PO Q6H PRN PRN Reason: PAIN - MILD(1-4)/FEVER Last Admin: 03/26/18 08:44 Dose: 650 mg Albuterol Sulfate (Albuterol Sulfate) 2.5 mg INH RESP.Q4H PRN PRN Reason: DIFFICULTY IN BREATHING Aspirin (Ecotrin (Ec)) 81 mg PO DAILY [facility] Last Admin: 03/26/18 09:16 Dose: 81 mg Atorvastatin Calcium (Lipitor) 20 mg PO QHS [facility] Last Admin: 03/25/18 21:36 Dose: 20 mg Benzonatate (Tessalon) 100 mg PO TID PRN PRN Reason: COUGH Bupropion HCl (Wellbutrin Sr) 150 mg PO BID [facility] Last Admin: 03/26/18 09:16 Dose: 150 mg Enoxaparin Sodium (Lovenox) 40 mg SQ DAILY [facility] Last Admin: 03/26/18 09:16 Dose: 40 mg Glipizide (Glucotrol) 5 mg PO BIDWM [facility] Last Admin: 03/26/18 08:44 Dose: 5 mg Hydroxyzine Pamoate (Vistaril) 25 mg PO Q6H PRN PRN Reason: ANXIETY Last Admin: 03/26/18 13:17 Dose: 25 mg CEFTRIAXONE 1GM/50ML BAG (Ceftriaxone 1 Gm-D5w Bag) 1 gm in 50 mls @ 100 mls/ hr IVPB Q12H [facility] Last Infusion: 03/26/18 10:00 Dose: Infused Ondansetron HCl (Zofran) 4 mg IVP Q6H PRN PRN Reason: NAUSEA Prednisone (Prednisone 20mg) 40 mg PO DAILY[facility] Last Admin: 03/26/18 13:11 Dose: 40 mg AMI Plan - Labs Result Diagrams: 03/27/18 07:45 03/27/18 07:45
[2018-03-26] MEDS: MAGNESIUM HYDROXIDE 30 ML UDC PO PRN (16:28)
[2018-03-26] MEDS: ATORVASTATIN 20 MG TABLET PO SCH (21:12)
[2018-03-27] MEDS: ACETAMINOPHEN 325 MG TAB PO PRN (04:47)
[2018-03-27 07:53] LABS: BASO % 0.1 % (0-6); EOS % 0.4 % (0-6); GRAN % 63.1 % (47-80); HEMATOCRIT 33.4 % (35.0-47.0); HEMOGLOBIN 11.1 gm/dl (11.6-16.0); LYMPH % 28.6 % (16-45); MEAN CORPUSCULAR HGB CONC 33.2 g/dl (32-36); MEAN PLATELET VOLUME 9.1 fl (7.4-10.4); MONO % 7.8 % (0-9); PLATELET COUNT 327 K/uL (130-400); RED BLOOD COUNT 3.63 M/uL (3.80-5.40); RED CELL DISTRIBUTION WIDTH 12.7 % (11.5-14.5); WHITE BLOOD COUNT W/O DIFF 13.5 K/uL (4.2-12.2)
[2018-03-27 07:55] LABS: MEAN CORPUSCULAR HEMOGLOBIN 30.5 pg (27-33)
[2018-03-27] MEDS: PREDNISONE 20 MG TAB PO SCH (07:59)
[2018-03-27] MEDS: HYDROXYZINE PAMOATE 25 MG CAPSULE PO PRN (07:59)
[2018-03-27] MEDS: GLIPIZIDE 5 MG TABLET PO SCH (08:00)
[2018-03-27 08:11] LABS: BLOOD UREA NITROGEN 18 mg/dL (6-20); CREATININE 0.6 mg/dL (0.5-0.9); EST GLOMERULAR FILTRATION RATE > 60 mL/min; GLUCOSE,RANDOM 213 mg/dL (74-109)
[2018-03-27] MEDS: ASPIRIN 81 MG TABEC PO SCH (09:13)
[2018-03-27] MEDS: BUPROPION HCL 150 MG TAB.SR.12H PO SCH (09:13)
[2018-03-27] MEDS: ENOXAPARIN 40 MG/0.4 ML SYR SQ SCH (09:14)
[2018-03-27] MEDS: MAGNESIUM HYDROXIDE 30 ML UDC PO PRN (09:20)
[2018-03-27] MEDS: UMECLIDINIUM BROMIDE (INCRUSE) 62.5MCG IH SCH (09:54)
[2018-03-27] MEDS: CEFTRIAXONE 1GM/50ML BAG 1 GM/50 ML BAG IVPB SCH (09:58)
[2018-03-27] MEDS ORDERED: CEFDINIR 300 MG CAPSULE PO SCH (10:00)
--- NOTE | 2018-03-27 10:01 | Discharge Summary ---
Providers Discharge Summary Date: 03/27/18 Date of admission: 03/24/18 18:50 Expected Date of Discharge: 03/27/18 Attending physician: WICHO PORTILLO Primary care physician: Hiral Lopez N.P. Physical Exam - Vital Signs Vital Signs: Vital Signs - Last 24 Hrs Temp Pulse Resp BP BP Pulse Ox 03/27/18 08:03 97.8 F 70 18 180/89 96 03/27/18 01:00 97.5 F L 71 16 159/89 96 03/26/18 17:00 97.6 F 76 18 158/80 96 - General General Appearance: Alert, Oriented x3, Cooperative, No acute distress Limitations: No limitations - Head Head exam: Atraumatic - Eye Eye exam: Normal appearance, PERRL - ENT ENT exam: Normal exam, Mucous membranes moist Ear exam: Normal external inspection Nasal Exam: Normal inspection Mouth exam: Normal external inspection - Neck Neck exam: Normal inspection, Full ROM. negative: Tenderness - Respiratory Respiratory exam: Decreased breath sounds, Wheezes. negative: Normal lung sounds bilaterally, Prolonged expiratory, Respiratory distress, Rhonchi, Stridor - Cardiovascular Cardiovascular Exam: Regular rate, Normal rhythm, Normal heart sounds Peripheral Pulses: 2+: Radial (R), Radial (L), Dorsalis Pedis (R), Dorsalis Pedis (L) - GI/Abdominal GI/Abdominal exam: Soft. negative: Tenderness - Rectal Rectal exam: Deferred - exam: Deferred - Extremities Extremities exam: Normal inspection, Full ROM, Normal capillary refill. negative: Tenderness - Back Back exam: Denies: CVA tenderness (R), CVA tenderness (L) - Neurological Neurological exam: Alert, Oriented X3 - Psychiatric Psychiatric exam: Normal affect, Normal mood - Skin Skin exam: Dry, Intact, Normal color, Warm Hospitalization - Hospitalization Admission Diagnosis: COPD, Vomiting, Dehydration - Problem List/Discharge Diagnosis (1) COPD (chronic obstructive pulmonary disease) Current Visit: Yes Status: Acute Base Code: J44.9 - CHRONIC OBSTRUCTIVE PULMONARY DISEASE, UNSPECIFIED Comment: 03/25/18 -IV rocpehin 1gm BID -alb neb, adding Incruse qd -CXR neg PNA -tx as COPD exacerbation 03/26/18 -started Incruse, tolerating well, reports decreased sputum production -continue rocephin IVP, lactic acid and WBC still slightly elevated -IVF d/c'd encouraged PO intake 03/27/18 -lung sounds improved, mild wheezing noted -cough has decreased, small amt of production -tolerating ADLs in room -req d/c. f/u 03/30/18 1320 already scheduled -transition to Cefdinir 300mg BID for 5 more days (2) Lactic acidosis Current Visit: Yes Status: Acute Base Code: E87.2 - ACIDOSIS Comment: -lactic acid 5.6, 2L NS and repeat 4.4 -3.1 this AM, continue IVF and IV ABX, metformin D/C'd -BC preliminary negative 03/26/18 -Lactic acid 2.2 this AM -D/C IVF, encouraged PO intake -BC results neg, pending final results 03/27/18 -Lactic acide 107 -Good PO intake -continue to hold metformin until seen by PCP (3) Renal insufficiency Current Visit: Yes Status: Acute Base Code: N28.9 - DISORDER OF KIDNEY AND URETER, UNSPECIFIED Comment: 03/25/18 -BUN 36, creatin 1.6, GFR 36 at admission -Repeat AM labs BUN 24, creatinin 0.7, GFR >60 -Continue IVF at 125 r/t continued lactic acidosis, repeat lactic acid 1600, will decrease fluids to 75 after lactic acid normalization -Nursing instructed to monitor for fluid overload with SOB, crackling lung sounds, or peripheral edema 03/26/18 -RFTs improved BUN 15, Cr 0.5, GFR>60 -making urine, weakness improved but not resovled 03/27/18 --RFTs return and maintaining normal function -good PO intake (4) Dehydration Current Visit: Yes Status: Acute Base Code: E86.0 - DEHYDRATION Comment: -2l NS bolus in ER, NS @ 125 continuous -encouage PO intake -monitor electrolytes and urine output 03/26/18 -IVF at 125 decreased r/t improved PO intake, RFTs and decreased lactic acid -Glucose and electrolytes normalizing 03/27/18 -electrolytes have normalized -continue to encouage PO intake (5) Full code status Current Visit: Yes Status: Acute Base Code: Z78.9 - OTHER SPECIFIED HEALTH STATUS Comment: 03/27/18 -full code (6) DVT prophylaxis Current Visit: Yes Status: Acute Base Code: [id number] - Diagnosis Priority: Secondary Comment: 03/27/18 -lovenox 40mg SQ qd - Hospitalization Course Disposition: Home, Self-Care Hospital Course: 57 yo female presents for admission for COPD exacerbation, lactic acidosis, ERIC , and dehydration Reports 3 weeks of cough, wheezing and more recently N/V. Denies abd pain, diarrhea, or fever/chills. Has failed outpatient treatment of 2 rounds of steroids and 2 rounds of antibiotics. PMH COPD, smoker, HTN, DM. 03/24/18 Pt presented to ER for cough, N/V, and malaise. CXR read as negative (awaiting official report). BP 94/69, HR 109, RR 18, 98% RA, 97.7F. BP Labs were delayed r/t equipment malfunctions in lab. WBC 23.7, Hgb 13.3, Hct 39.1, Plt 475, Neutrophils 81 (bands 1) Na 135, K 4.3, Cl 89, Co224, Anion Gap 22, BUN 36, Creatinine 1.6, GFR 36, glucose 210, Ca 11 Lactic Acid 5.6, repeated 4.4 (4 hours later after fluids) UA indicates dehydration with protein, glucose, ketones, and specific gravity > 1.030, trace leuk BC x2 pending, Pt given 2 L NS, Zofran 4mg IVP, Solumedrol 125mg IVP, DuoNeb Orders started by ER, Rocephin 1GM to start inpt, solumedrol 60mg IVP qd and resume glipizide in the AM. Repeat labs, continue NS @125, nausea meds PRN. RN given instructions to monitor BP after abx infusion completed. 03/25/18 Pt resting in bed, mild distress with coughing but no n/v since starting IVF. Lactic acid has improved to 3.1, RFTs normalizing at BUN 24, Creatinine 0.7, GFR >60. Continue to hold metformin and restarting glipizide. Continue IVF, Rocephin, IV steroids, and alb neb tx. Adding Incruse qd. Pt has milk allergy but reports mild symptoms and can tolerate cheese and other milk products. Will monitor for systemic issues. PCP Hiral Lopez Procedures: Imaging and X-Rays 03/24/18 13:07 CHEST 2 VIEWS [RAD] Stat Cardiology Procedures 03/24/18 13:01 Text Transcriber NOW 03/24/18 18:33 Text Transcriber .Continuous Abnormal Labs: Abnormal Lab Results 03/24/18 03/24/18 03/24/18 Range/Units 13:15 13:15 13:15 WBC 23.7 H* (4.2-12.2) K/uL RBC (3.80-5.40) M/uL Hgb (11.6-16.0) gm/dl Hct (35.0-47.0) % Plt Count 475 H (130-400) K/uL MPV (7.4-10.4) fl Neutrophils % 81.0 H (47-80) % Lymphocytes 14.0 L (16-45) % Sodium 135 L (136-145) mmol/L Potassium (3.4-4.5) mmol/L Chloride 89 L (98-107) mmol/L Carbon Dioxide (22-29) mmol/L Anion Gap 22.0 H (7-16) BUN 36 H (6-20) mg/dL Creatinine 1.6 H (0.5-0.9) mg/dL Random Glucose 210 H (74-109) mg/dL Lactic Acid (0.5-2.2) mmol/L Calcium 11.0 H (8.6-10.0) mg/dL Urine Protein 30 mg/dl H (NEGATIVE) Urine Glucose (UA) 100 mg/dl H (NEGATIVE) Urine Ketones 15 mg/dl H (NEGATIVE) Urine Bilirubin Small H (NEGATIVE) Ur Leukocyte Esterase Trace H (NEGATIVE) 03/24/18 03/24/18 03/25/18 Range/Units 14:25 18:34 06:30 WBC (4.2-12.2) K/uL RBC (3.80-5.40) M/uL Hgb (11.6-16.0) gm/dl Hct (35.0-47.0) % Plt Count (130-400) K/uL MPV (7.4-10.4) fl Neutrophils % (47-80) % Lymphocytes (16-45) % Sodium 135 L (136-145) mmol/L Potassium (3.4-4.5) mmol/L Chloride (98-107) mmol/L Carbon Dioxide 20.0 L (22-29) mmol/L Anion Gap 17.0 H (7-16) BUN 24 H (6-20) mg/dL Creatinine (0.5-0.9) mg/dL Random Glucose 238 H (74-109) mg/dL Lactic Acid 5.6 H 4.4 H (0.5-2.2) mmol/L Calcium (8.6-10.0) mg/dL Urine Protein (NEGATIVE) Urine Glucose (UA) (NEGATIVE) Urine Ketones (NEGATIVE) Urine Bilirubin (NEGATIVE) Ur Leukocyte Esterase (NEGATIVE) 03/25/18 03/25/18 03/25/18 Range/Units 06:30 06:30 16:50 WBC 16.2 H (4.2-12.2) K/uL RBC 3.45 L (3.80-5.40) M/uL Hgb 10.7 L (11.6-16.0) gm/dl Hct 31.6 L (35.0-47.0) % Plt Count (130-400) K/uL MPV (7.4-10.4) fl Neutrophils % (47-80) % Lymphocytes 14.0 L (16-45) % Sodium (136-145) mmol/L Potassium (3.4-4.5) mmol/L Chloride (98-107) mmol/L Carbon Dioxide (22-29) mmol/L Anion Gap (7-16) BUN (6-20) mg/dL Creatinine (0.5-0.9) mg/dL Random Glucose (74-109) mg/dL Lactic Acid 3.1 H 3.1 H (0.5-2.2) mmol/L Calcium (8.6-10.0) mg/dL Urine Protein (NEGATIVE) Urine Glucose (UA) (NEGATIVE) Urine Ketones (NEGATIVE) Urine Bilirubin (NEGATIVE) Ur Leukocyte Esterase (NEGATIVE) 03/26/18 03/26/18 03/27/18 Range/Units 07:30 07:30 07:45 WBC 12.6 H 13.5 H (4.2-12.2) K/uL RBC 3.54 L 3.63 L (3.80-5.40) M/uL Hgb 11.3 L 11.1 L (11.6-16.0) gm/dl Hct 33.4 L 33.4 L (35.0-47.0) % Plt Count (130-400) K/uL MPV 11.4 H (7.4-10.4) fl Neutrophils % 92.0 H (47-80) % Lymphocytes 6.0 L (16-45) % Sodium 134 L (136-145) mmol/L Potassium 4.7 H (3.4-4.5) mmol/L Chloride (98-107) mmol/L Carbon Dioxide 17.0 L (22-29) mmol/L Anion Gap (7-16) BUN (6-20) mg/dL Creatinine (0.5-0.9) mg/dL Random Glucose 269 H (74-109) mg/dL Lactic Acid (0.5-2.2) mmol/L Calcium (8.6-10.0) mg/dL Urine Protein (NEGATIVE) Urine Glucose (UA) (NEGATIVE) Urine Ketones (NEGATIVE) Urine Bilirubin (NEGATIVE) Ur Leukocyte Esterase (NEGATIVE) 03/27/18 Range/Units 07:45 WBC (4.2-12.2) K/uL RBC (3.80-5.40) M/uL Hgb (11.6-16.0) gm/dl Hct (35.0-47.0) % Plt Count (130-400) K/uL MPV (7.4-10.4) fl Neutrophils % (47-80) % Lymphocytes (16-45) % Sodium (136-145) mmol/L Potassium (3.4-4.5) mmol/L Chloride (98-107) mmol/L Carbon Dioxide (22-29) mmol/L Anion Gap (7-16) BUN (6-20) mg/dL Creatinine (0.5-0.9) mg/dL Random Glucose 213 H (74-109) mg/dL Lactic Acid (0.5-2.2) mmol/L Calcium (8.6-10.0) mg/dL Urine Protein (NEGATIVE) Urine Glucose (UA) (NEGATIVE) Urine Ketones (NEGATIVE) Urine Bilirubin (NEGATIVE) Ur Leukocyte Esterase (NEGATIVE) Condition at Discharge: (1) Good Discharge Diagnosis: COPD exacerbatin, lactic acidosis, dehydration, renal insufficiency Discharge Medications - Discharge Medications Prescriptions: Cefdinir 300 mg PO BID 5 Days #10 capsule Prednisone [Prednisone 20Mg] 40 mg PO DAILYWM 2 Days #8 tab Umeclidinium [place] (Incruse) [Incruse Ellipta] 1 puff IH DAILY #1 inhaler Home Medications: Ambulatory Orders Lactobacillus Combo No.10 [Probiotic] 1 each PO DAILY cap 03/07/18 [Last Taken Unknown] Atorvastatin Calcium 20 mg PO QHS 03/25/18 [Last Taken Unknown] Glipizide 5 mg PO BIDWM 03/25/18 [Last Taken Unknown] Acetaminophen [Tylenol 325Mg] 650 mg PO Q6H PRN tablet 03/27/18 [Last Taken Unknown] Cefdinir 300 mg PO BID 5 Days #10 capsule 03/27/18 [Last Taken Unknown] Glipizide [Glucotrol] 5 mg PO BIDWM tablet 03/27/18 [Last Taken Unknown] Hydroxyzine Pamoate [Vistaril] 25 mg PO Q6H PRN capsule 03/27/18 [Last Taken Unknown] Prednisone [Prednisone 20Mg] 40 mg PO DAILYWM 2 Days #8 tab 03/27/18 [Last Taken Unknown] Umeclidinium [place] (Incruse) [Incruse Ellipta] 1 puff IH DAILY #1 inhaler 09/07 [Last Taken Unknown] Discharge Plan - Discharge Instructions Additional Instructions: Follow up with your PCP, Hiral Lopez, at [facility] ([address], [place] [address], ) on 03/30/18 at 1: 20PM. Quality Measures - Quality Measures Quality Measures: Documentation of Current Medications in Medical Record, Screening for High Blood Pressure and F/U Documented - Current Medications Quality Measure: Measure #130: Documentation of Current Medications Documentation of Current Medications: <Current Medications Documented/Reviewed> [G8427] - Blood Pressure Screening Quality Measure: Screening for High Blood Pressure and Follow-Up Documented Does Patient Have Any of the Following: Active Dx of HTN Blood Pressure Classification: Normal BP Reading Systolic Measurement: 94 Diastolic Measurement: 69 Screening for High Blood Pressure: Patient Exclusion, Hx of HTN [G9744] - Elder Abuse Suspicion Index EASI Reference Information: Seth PAPPSA, Javier Dukes, Celso D, Crystal Shen.Development and validation of a tool to assist physicians identification of elder abuse: The Elder Abuse Suspicion Index (EASI ). Journal of Elder Abuse and Neglect, 2008; 20 (3): 276-300.
[2018-03-27] MEDS ORDERED: LISINOPRIL 20 MG TABLET PO ONE (10:09)
[2018-03-27] MEDS ORDERED: FLUCONAZOLE 100 MG TABLET PO ONE (10:23)
== END 2018-03-27 11:20 | disposition home or self-care (01) | DRG 191 ==
LOC: ER 12:37 → MEDSURG 18:20 → UNDOADMIN 18:20 → MEDSURG 18:50
PROVIDERS: ADMIT Internal Medicine; ATTEND Internal Medicine
DX: J44.9 Chronic obstructive pulmonary disease, unspecified (principal); E87.2 Acidosis; R05 Cough; N28.9 Disorder of kidney and ureter, unspecified; E86.0 Dehydration; J45.909 Unspecified asthma, uncomplicated; I10 Essential (primary) hypertension; E78.00 Pure hypercholesterolemia, unspecified; K58.9 Irritable bowel syndrome, unspecified; K21.9 Gastro-esophageal reflux disease without esophagitis; F17.210 Nicotine dependence, cigarettes, uncomplicated
CPT/HCPCS: 71046; 80048; 80053; 81001; 82009; 82800; 83605; 84484; 85025; 85027; 94640; 94760; 94761; 96361; 96374; 96375; 99223; 99239; 99285; J0696; J1650; J2405; J2930; J7030; J7512; J7613

== ENCOUNTER 2018-04-02 18:30 | Emergency (ER) | payer OTHER ==
[2018-04-02] MEDS ORDERED: 0.9 % SODIUM CHLORIDE 1,000 ML BAG IV ONE ×2 (18:38→19:34)
[2018-04-02 18:56] LABS: BASO % 0.4 % (0-6); EOS % 0.9 % (0-6); GRAN % 61.5 % (47-80); HEMATOCRIT 36.2 % (35.0-47.0); HEMOGLOBIN 12.7 gm/dl (11.6-16.0); LYMPH % 28.3 % (16-45); MEAN CORPUSCULAR HEMOGLOBIN 31.6 pg (27-33); MEAN CORPUSCULAR HGB CONC 35.1 g/dl (32-36); MEAN PLATELET VOLUME 9.5 fl (7.4-10.4); MONO % 8.9 % (0-9); PLATELET COUNT 355 K/uL (130-400); RED BLOOD COUNT 4.02 M/uL (3.80-5.40); RED CELL DISTRIBUTION WIDTH 12.9 % (11.5-14.5); WHITE BLOOD COUNT W/O DIFF 14.1 K/uL (4.2-12.2)
[2018-04-02 19:08] LABS: ACETONE,SERUM NEGATIVE (NEGATIVE); BLOOD UREA NITROGEN 21 mg/dL (6-20)
[2018-04-02 19:09] LABS: CREATININE 0.7 mg/dL (0.5-0.9); EST GLOMERULAR FILTRATION RATE > 60 mL/min; TOTAL PROTEIN 6.9 g/dL (6.6-8.7)
[2018-04-02 19:13] LABS: URINE APPEARANCE CLEAR; URINE BILIRUBIN NEGATIVE (NEGATIVE); URINE BLOOD TRACE-I (NEGATIVE); URINE COLOR YELLOW; URINE KETONE NEGATIVE (NEGATIVE); URINE LEUKOCYTE ESTERASE NEGATIVE (NEGATIVE); URINE NITRITE NEGATIVE (NEGATIVE); URINE PROTEIN NEGATIVE (NEGATIVE); URINE UROBILINOGEN 0.2 E.U./dL (0.20 - 1.00)
--- NOTE | 2018-04-02 19:13 | Emergency Department Record ---
History of Present Illness - General Stated Complaint: HIGH SUGAR Time Seen by Provider: 04/02/18 18:38 Source: Patient Mode of Arrival: Ambulatory Limitations: No limitations - History of Present Illness Initial comments: 57 yo female presents with elevated blood sugars for a few days. She was recently admitted to the hospital with COPD, on steroids. She had elected lactic acid then and her Metformin has been held. She has noticed she is drinking and urinating more. She denies any shortness of breath. No chest pain. No nausea, vomiting or diarrhea. Blood sugar has been around 500. -: Days(s) Location: Other Radiation: Non-Radiating Quality: Other (No pain) Improves with: None Worsens with: Other (Recent medication changes) Associated Symptoms: Denies other symptoms Treatments Prior to Arrival: None - Cameron Coma Scale Eye Response: (4) Open spontaneously Motor Response: (6) Obeys commands Verbal Response: (5) Oriented [place] Total: 15 - Related Data Home Medications Medication Instructions Recorded Confirmed Last Taken Glipizide 1 tab PO BID 04/02/18 04/02/18 04/02/18 18:00 Previous Rx's Medication Instructions Recorded Lisinopril 20 mg PO DAILY 14 Days #14 tablet 03/27/18 Allergies Allergy/AdvReac Type Severity Reaction Status Date / Time meperidine HCl [From Demerol] Allergy Intermediate hives Verified 04/02/18 18:39 milk Allergy Intermediate ABDOMINAL Verified 04/02/18 18:39 PAIN morphine Allergy Intermediate HIVES Verified 04/02/18 18:39 Penicillins Allergy Intermediate hives Verified 04/02/18 18:39 codeine Allergy HIVES Verified 04/02/18 18:39 sulfamethoxazole Allergy HIVES Verified 04/02/18 18:39 [From Bactrim] trimethoprim [From Bactrim] Allergy vomiting Verified 04/02/18 18:39 Review of Systems Constitutional: Denies: Chills, Fever, Weakness Eyes: Denies: Eye discharge ENT: Denies: Congestion Respiratory: Denies: Cough, Dyspnea Cardiovascular: Denies: Chest pain, Syncope Endocrine: Denies: Fatigue Gastrointestinal: Denies: Abdominal pain, Diarrhea, Nausea, Vomiting Past Medical History - SOCIAL HISTORY Smoking Status: Light tobacco smoker (<10/day) Drug Use: None - RESPIRATORY Hx Respiratory Disorders: Yes Hx Asthma: Yes Hx COPD: Yes - CARDIOVASCULAR Hx Cardio Disorders: Yes Hx Hypertension: Yes Hx Irregular Heartbeat: Yes (slight irregular-no treatment) Comment:: high cholesterol - NEURO Hx Neuro Disorders: No Hx Headaches: Yes - GI Hx GI Disorders: Yes Hx Abdominal Pain: Yes (with IBS) Hx Reflux: Yes Hx Irritable Bowel: Yes Hx Rectal Bleeding: Yes (occ) Hx Wt Loss/Wt Gain: Yes (75 lb loss over 1 year) Hx of Polyps: Yes Comment:: constipation/diarrhea with IBS - Hx Genitourinary Disorders: Yes Hx UTI: Yes - ENDOCRINE Hx Endocrine Disorders: Yes Hx Diabetes: Yes (Borderline) - MUSCULOSKELETAL Hx Musculoskeletal Disorders: Yes Hx Arthritis: Yes - PSYCH Hx Psych Problems: Yes Hx Anxiety: Yes Hx Depression: Yes - HEMATOLOGY/ONCOLOGY Hx Hematology/Oncology Disorders: No Family Medical History Family Hx Comment (NOT TO BE USED IN PLACE OF ITEMS BELOW): mom w/ sclerderma Hx Cancer: Brother/Sister *Cancer Comment: sister-melanoma, 1/2 brother-colon cancer Hx Depression: Brother/Sister Hx Heart Disease: Father *Heart Comment: chf Hx HTN: Brother/Sister Hx Resp Disorders: Mother Hx Stroke: Father *Stroke Comment: x3 Course - Reevaluation(s) Reevaluation #1: 04/02/18 19:18 Venous pH is normal at 7.37. No acidosis. CBC reviewed. WBC is 14 04/02/18 19:35 The Acetone is negative The HCO3 is 20 The AG is 17 Glucose is 450 Normal renal function Additional IVF and Insulin ordered 04/02/18 20:49 Repeat glucose down to 346. I discussed with her dosing changes of the Glipizide for the weekend. She has close follow up this week on Wednesday and Wednesday with her doctors. She appears well. She is not in DKA. No other current symptoms Medical Decision Making - Lab Data Result diagrams: 04/02/18 18:46 04/02/18 18:46 Disposition Disposition: Discharge Clinical Impression: Hyperglycemia Disposition: Home, Self-Care Condition: (1) Good Instructions: Diabetic Hyperglycemia (ED) Additional Instructions: You may take Glipizide 10mg in the AM and remain on 5mg in the evening Check your sugars 3 times daily Follow up on Wednesday and Wednesday as scheduled with your doctor to monitor your blood sugar. Return if you have any concerns with the blood sugar over the weekend. Forms: Patient Portal Access Quality - Quality Measures Quality Measures: N/A - Blood Pressure Screening Does Patient Have Any of the Following: Active Dx of HTN Blood Pressure Classification: Hypertensive Reading Systolic Measurement: 211 Diastolic Measurement: 109 Screening for High Blood Pressure: Patient Exclusion, Hx of HTN [G9744]
[2018-04-02 19:14] LABS: ALB/GLOB RATIO 1.6 (1.1-1.8); ALBUMIN 4.2 g/dL (4.0-5.0); ALKALINE PHOSPHATASE 91 U/L (45-87); ALT/SGPT 43 U/L (<33); AST/SGOT 17 U/L (10.0-35.0)
[2018-04-02 19:15] LABS: URINE GLUCOSE (UA) >=1000 mg/dL (NEGATIVE)
[2018-04-02 19:24] LABS: GLUCOSE,RANDOM 450 mg/dL (74-109)
[2018-04-02] MEDS ORDERED: HUMULIN R 100 UNIT/ML VIAL SQ ONE ×2 (19:34→20:51)
== END 2018-04-02 22:22 | disposition home or self-care (01) ==
LOC: ER 18:30
DX: E11.65 Type 2 diabetes mellitus with hyperglycemia (principal); R42 Dizziness and giddiness; R06.02 Shortness of breath; J44.9 Chronic obstructive pulmonary disease, unspecified; F17.210 Nicotine dependence, cigarettes, uncomplicated; Z79.84 Long term (current) use of oral hypoglycemic drugs
CPT/HCPCS: 36416; 80053; 81003; 82009; 82800; 82948; 85025; 96372; 99284; J7030

== ENCOUNTER 2018-11-27 11:44 | Emergency (ER) | payer OTHER ==
[2018-11-27] MEDS ORDERED: 0.9 % SODIUM CHLORIDE 1,000 ML BAG IV ONE (12:10)
--- NOTE | 2018-11-27 12:18 | Emergency Department Record ---
History of Present Illness - General Chief complaint: Hypergylcemia Stated complaint: BLOOD SUGAR HIGH /394 Time Seen by Provider: 11/27/18 12:03 Source: Patient Mode of Arrival: Ambulatory Limitations: No limitations - History of Present Illness Initial comments: The patient is here due to finding that her blood sugar is high at home over the last few days. She has a hx of DM II and is on multiple oral meds for it. The patient does also have a hx of COPD and developed a cough and congestion a week ago. She was seen in the UC and was started on oral steroids and an Abx. Since her blood sugar has been high. The patient has been weak but no urinating any more than normal. She does have a hx of the same issues with steroids in the past. MD Complaint: Generalized weakness Onset/Timin -: Days(s) Severity: Moderate Quality: Aching Consistency: Constant Improves with: None Worsens with: None Associated Symptoms: Nausea/vomiting - [place] Coma Scale Eye Response: (4) Open spontaneously Motor Response: (6) Obeys commands Verbal Response: (5) Oriented [place] Total: 15 - Related Data Previous Rx's Medication Instructions Recorded Glipizide 10 mg PO BID #6 tablet 11/27/18 Allergies Allergy/AdvReac Type Severity Reaction Status Date / Time meperidine HCl [From Demerol] Allergy Intermediate hives Verified 11/27/18 12:00 milk Allergy Intermediate ABDOMINAL Verified 11/27/18 12:00 PAIN morphine Allergy Intermediate HIVES Verified 11/27/18 12:00 Penicillins Allergy Intermediate hives Verified 11/27/18 12:00 codeine Allergy HIVES Verified 11/27/18 12:00 sulfamethoxazole Allergy HIVES Verified 11/27/18 12:00 [From Bactrim] trimethoprim [From Bactrim] Allergy vomiting Verified 11/27/18 12:00 Travel Screening - Travel/Exposure Within Last 30 Days Have you traveled within the last 30 days?: No - Travel/Exposure Within Last Year Have you traveled outside the [place] in the last year?: No - Additonal Travel Details Have you been exposed to anyone with a communicable illness?: No - Travel Symptoms Symptom Screening: None Review of Systems Constitutional: Denies: Chills, Fever Eyes: Denies: Eye discharge ENT: Denies: Congestion Respiratory: Denies: Dyspnea Cardiovascular: Denies: Arrhythmia Endocrine: Reports: Fatigue Gastrointestinal: Denies: Nausea Genitourinary: Denies: Dysuria Musculoskeletal: Denies: Arthralgia Skin: Denies: Bruising Past Medical History - SOCIAL HISTORY Smoking Status: Former smoker Alcohol Use: None Drug Use: None - RESPIRATORY Hx Respiratory Disorders: Yes Hx Asthma: Yes Hx Bronchitis: Yes Hx COPD: Yes - CARDIOVASCULAR Hx Cardio Disorders: Yes Hx Hypertension: Yes Hx Irregular Heartbeat: Yes (slight irregular-no treatment) Comment:: high cholesterol - NEURO Hx Neuro Disorders: No Hx Headaches: Yes - GI Hx GI Disorders: Yes Hx Abdominal Pain: Yes (with IBS) Hx Reflux: Yes Hx Irritable Bowel: Yes Hx Rectal Bleeding: Yes (occ) Hx Wt Loss/Wt Gain: Yes (75 lb loss over 1 year) Hx of Polyps: Yes Comment:: constipation/diarrhea with IBS - Hx Genitourinary Disorders: Yes Hx UTI: Yes - ENDOCRINE Hx Endocrine Disorders: Yes Hx Diabetes: Yes (Borderline) - MUSCULOSKELETAL Hx Musculoskeletal Disorders: Yes Hx Arthritis: Yes - PSYCH Hx Psych Problems: Yes Hx Anxiety: Yes Hx Depression: Yes - HEMATOLOGY/ONCOLOGY Hx Hematology/Oncology Disorders: No Family Medical History Any Significant Family History?: Yes Family Hx Comment (NOT TO BE USED IN PLACE OF ITEMS BELOW): mom w/ sclerderma Hx Cancer: Brother/Sister *Cancer Comment: sister-melanoma, 1/2 brother-colon cancer Hx Depression: Brother/Sister Hx Heart Disease: Father *Heart Comment: chf Hx HTN: Brother/Sister Hx Resp Disorders: Mother Hx Stroke: Father *Stroke Comment: x3 Physical Exam - General General Appearance: Alert, Oriented x3, Cooperative, No acute distress - Head Head exam: Atraumatic, Normocephalic - Eye Eye exam: Normal appearance, PERRL - ENT Throat exam: Normal inspection. negative: Tonsillar erythema, Tonsillar exudate - Neck Neck exam: Normal inspection, Full ROM. negative: Tenderness - Respiratory Respiratory exam: Normal lung sounds bilaterally. negative: Respiratory distress, Rhonchi, Stridor, Wheezes - Cardiovascular Cardiovascular Exam: Regular rate, Normal rhythm, Normal heart sounds - GI/Abdominal GI/Abdominal exam: Soft, Normal bowel sounds. negative: Tenderness - Extremities Extremities exam: Normal inspection, Full ROM, Normal capillary refill. negative: Tenderness - Back Back exam: Reports: Normal inspection - Neurological Neurological exam: Alert, Normal gait. negative: Abnormal gait, Motor sensory deficit - Psychiatric Psychiatric exam: negative: Anxious - Skin Skin exam: negative: Rash Course Vital Signs 11/27/18 11:52 Temperature 98.2 F Pulse Rate 93 H Respiratory 18 Rate Blood Pressure 188/97 Pulse Ox 97 - Reevaluation(s) Reevaluation #1: The patient is doing a lot better at this time. Her repeat blood sugar is down below 300. She is ready for discharge and will stop her Prednisone. 11/27/18 14:05 Medical Decision Making - Data Complexity MDM Data: Labs Ordered and/or Reviewed, X-Ray Ordered and/or Reviewed - Lab Data Result diagrams: 11/27/18 12:13 11/27/18 12:13 - Radiology Data Radiology results: Report reviewed (CXR: Neg for any acute process, COPD.) Disposition Disposition: Discharge Clinical Impression: Hyperglycemia, drug-induced Disposition: Home, Self-Care Condition: (2) Stable Instructions: Diabetic Hyperglycemia (ED) Additional Instructions: Please stop the Prednisone and take the extra Glipizide for 3 days. Please see your doctor this week for recheck and return to the ER for any worsening symptoms. Prescriptions: Glipizide 10 mg PO BID #6 tablet Forms: Patient Portal Access Time of Disposition: 14:08 Quality - Quality Measures Quality Measures: N/A - Blood Pressure Screening View Details: Yes Does Patient Have Any of the Following: No Blood Pressure Classification: Hypertensive Reading Systolic Measurement: 188 Diastolic Measurement: 97 Screening for High Blood Pressure: < First Hypertensive BP, F/U Documented > [G8950] First Hypertensive Follow-up Interventions: Referral to alternative/primary care provider.
[2018-11-27 12:23] LABS: URINE APPEARANCE CLEAR; URINE BILIRUBIN NEGATIVE (NEGATIVE); URINE BLOOD NEGATIVE (NEGATIVE); URINE COLOR YELLOW; URINE KETONE NEGATIVE (NEGATIVE); URINE LEUKOCYTE ESTERASE NEGATIVE (NEGATIVE); URINE NITRITE NEGATIVE (NEGATIVE); URINE PROTEIN NEGATIVE (NEGATIVE); URINE UROBILINOGEN 0.2 E.U./dL (0.20 - 1.00)
[2018-11-27 12:25] LABS: ABSOLUTE NEUTROPHIL COUNT 8.61; HEMATOCRIT 39.2 % (35.0-47.0); HEMOGLOBIN 13.3 gm/dl (11.6-16.0); MEAN CELL VOLUME 85.2 fl (81-97); MEAN CORPUSCULAR HEMOGLOBIN 28.9 pg (27-33); MEAN CORPUSCULAR HGB CONC 33.9 g/dl (32-36); MEAN PLATELET VOLUME 9.1 fl (7.4-10.4); PLATELET COUNT 486 K/uL (130-400); RED CELL DISTRIBUTION WIDTH 12.4 % (11.5-14.5); WHITE BLOOD COUNT W/O DIFF 10.5 K/uL (4.2-12.2)
[2018-11-27 12:28] LABS: URINE GLUCOSE (UA) >=1000 mg/dL (NEGATIVE)
[2018-11-27 12:40] LABS: ACETONE,SERUM NEGATIVE (NEGATIVE)
[2018-11-27 12:47] LABS: BLOOD UREA NITROGEN 20 mg/dL (6-20)
[2018-11-27 12:48] LABS: CREATININE 0.6 mg/dL (0.5-0.9); EST GLOMERULAR FILTRATION RATE > 60 mL/min
[2018-11-27 12:50] LABS: GLUCOSE,RANDOM 429 mg/dL (74-109)
[2018-11-27] MEDS ORDERED: HUMULIN R 100 UNIT/ML VIAL IV ONE (12:58)
--- NOTE | 2018-11-28 14:53 | RADIOLOGY REPORT ---
EXAM: CHEST, TWO VIEWS HISTORY: COUGH AND COPD. TECHNIQUE: Two views of the chest were obtained. Comparison: 06/14/18. FINDINGS: The cardiomediastinal silhouette is unremarkable. The lungs are hyperinflated compatible with emphysematous change/COPD. No focal consolidation or pleural effusion. Old left sided rib fractures. IMPRESSION: NO ACUTE CARDIOPULMONARY ABNORMALITY. COPD. JOB NUMBER: [id number]
== END 2018-11-27 14:15 | disposition home or self-care (01) ==
LOC: ER 11:44
DX: E09.65 Drug or chemical induced diabetes mellitus with hyperglycemia (principal); T38.0X5A Adverse effect of glucocorticoids and synthetic analogues, initial encounter; Z79.84 Long term (current) use of oral hypoglycemic drugs; R05 Cough; R53.1 Weakness; R11.2 Nausea with vomiting, unspecified; I10 Essential (primary) hypertension; J44.9 Chronic obstructive pulmonary disease, unspecified; Z87.891 Personal history of nicotine dependence
CPT/HCPCS: 71046; 80048; 81003; 82009; 82800; 85027; 96361; 96374; 99284; J7030

== ENCOUNTER 2019-03-01 11:42 | Emergency (ER) | payer OTHER ==
[2019-03-01] MEDS ORDERED: ONDANSETRON HCL IV 4 MG/2 ML VIAL IV ONE (12:11)
[2019-03-01] MEDS ORDERED: 0.9 % SODIUM CHLORIDE 1,000 ML BAG IV ONE (12:11)
[2019-03-01 12:15] LABS: URINE APPEARANCE CLEAR; URINE BILIRUBIN SMALL (NEGATIVE); URINE BLOOD NEGATIVE (NEGATIVE); URINE COLOR YELLOW; URINE KETONE TRACE (NEGATIVE); URINE LEUKOCYTE ESTERASE NEGATIVE (NEGATIVE); URINE NITRITE NEGATIVE (NEGATIVE); URINE PROTEIN NEGATIVE (NEGATIVE); URINE UROBILINOGEN 0.2 E.U./dL (0.20 - 1.00)
--- NOTE | 2019-03-01 12:26 | Emergency Department Record ---
History of Present Illness - General Chief complaint: Female Urogenital Problem Stated complaint: DEHYDRATED Time Seen by Provider: 03/01/19 12:06 Source: Patient, RN notes reviewed Mode of Arrival: Ambulatory - History of Present Illness Initial comments: patient has dysuria and suprapubic abdominal pain and has had a history of dehydrating where she had to be in the hospital for IV fluids. She went to [facility] and they sent her to the ED. No vomiting and no diarhea but she is nauseated and she she states she normally doesn't vomit.PMH DM Onset/Timin -: Days(s) Severity scale (1-10): 7 Improves with: None Worsens with: None Associated Symptoms: Headaches, Loss of appetite, Nausea/vomiting - Related Data Home Medications Medication Instructions Recorded Confirmed Last Taken Fexofenadine HCl [Vero Allergy] 60 mg PO DAILY 03/01/19 03/01/19 02/28/19 Previous Rx's Medication Instructions Recorded Dicyclomine HCl [Bentyl] 10 mg PO Q8H #30 cap 03/01/19 Miconazole Nitrate [Monistat 7] 1 applic VG QHS #7 cmb.pf.crm 03/01/19 Allergies Allergy/AdvReac Type Severity Reaction Status Date / Time meperidine HCl [From Demerol] Allergy Intermediate hives Verified 03/01/19 11:53 milk Allergy Intermediate ABDOMINAL Verified 03/01/19 11:53 PAIN morphine Allergy Intermediate HIVES Verified 03/01/19 11:53 Penicillins Allergy Intermediate hives Verified 03/01/19 11:53 codeine Allergy HIVES Verified 03/01/19 11:53 sulfamethoxazole Allergy HIVES Verified 03/01/19 11:53 [From Bactrim] trimethoprim [From Bactrim] Allergy vomiting Verified 03/01/19 11:53 Travel Screening - Travel/Exposure Within Last 30 Days Have you traveled within the last 30 days?: No Review of Systems Reviewed: No additional complaints except as noted below Constitutional: Reports: As per HPI. Denies: Chills, Fever, Malaise, Night sweats, Weakness, Weight change Eyes: Reports: As per HPI. Denies: Eye discharge, Eye pain, Photophobia, Vision change ENT: Reports: As per HPI. Denies: Congestion, Dental pain, Ear pain, Epistaxis, Hearing loss, Throat pain Respiratory: Reports: As per HPI. Denies: Cough, Dyspnea, Hemoptysis, Stridor, Wheezes Cardiovascular: Reports: As per HPI. Denies: Arrhythmia, Chest pain, Dyspnea on exertion, Edema, Murmurs, Orthopnea, Palpitations, Paroxysmal nocturnal dyspnea, Rheumatic Fever, Syncope Endocrine: Reports: As per HPI. Denies: Fatigue, Heat or cold intolerance, Polydipsia, Polyuria Gastrointestinal: Reports: As per HPI, Abdominal pain, Nausea. Denies: Constipa tion, Diarrhea, Hematemesis, Hematochezia, Melena, Vomiting Genitourinary: Reports: As per HPI, Dysuria. Denies: Abnormal menses, Discharge, Dyspareunia, Frequency, Hematuria, Incontinence, Retention, Urgency Musculoskeletal: Reports: As per HPI. Denies: Arthralgia, Back pain, Gout, Joint swelling, Myalgia, Neck pain Skin: Reports: As per HPI. Denies: Bruising, Change in color, Change in hair/nails, Lesions, Pruritus, Rash Neurological: Reports: As per HPI. Denies: Abnormal gait, Confusion, Headache, Numbness, Paresthesias, Seizure, Tingling, Tremors, Vertigo, Weakness Psychiatric: Reports: As per HPI. Denies: Anxiety, Auditory hallucinations, Depression, Homicidal thoughts, Suicidal thoughts, Visual hallucinations Hematological/Lymphatic: Reports: As per HPI. Denies: Anemia, Blood Clots, Easy bleeding, Easy bruising, Swollen glands Past Medical History - SOCIAL HISTORY Smoking Status: Former smoker Alcohol Use: None Drug Use: None - RESPIRATORY Hx Respiratory Disorders: Yes Hx Asthma: Yes Hx Bronchitis: Yes Hx COPD: Yes - CARDIOVASCULAR Hx Cardio Disorders: Yes Hx Hypertension: Yes Hx Irregular Heartbeat: Yes (slight irregular-no treatment) Comment:: high cholesterol - NEURO Hx Neuro Disorders: No Hx Headaches: Yes - GI Hx GI Disorders: Yes Hx Abdominal Pain: Yes (with IBS) Hx Reflux: Yes Hx Irritable Bowel: Yes Hx Rectal Bleeding: Yes (occ) Hx Wt Loss/Wt Gain: Yes (75 lb loss over 1 year) Hx of Polyps: Yes Comment:: constipation/diarrhea with IBS - Hx Genitourinary Disorders: Yes Hx UTI: Yes - ENDOCRINE Hx Endocrine Disorders: Yes Hx Diabetes: Yes (Borderline) - MUSCULOSKELETAL Hx Musculoskeletal Disorders: Yes Hx Arthritis: Yes - PSYCH Hx Psych Problems: Yes Hx Anxiety: Yes Hx Depression: Yes - HEMATOLOGY/ONCOLOGY Hx Hematology/Oncology Disorders: No Family Medical History Any Significant Family History?: Yes Family Hx Comment (NOT TO BE USED IN PLACE OF ITEMS BELOW): mom w/ sclerderma Hx Cancer: Brother/Sister *Cancer Comment: sister-melanoma, (2) 1/2 brother-colon cancer Hx Depression: Brother/Sister Hx Heart Disease: Father *Heart Comment: chf Hx HTN: Brother/Sister Hx Resp Disorders: Mother Hx Stroke: Father *Stroke Comment: x3 Physical Exam - General General Appearance: Alert, Oriented x3, Cooperative, No acute distress - Head Head exam: Normal inspection - Eye Eye exam: Normal appearance, PERRL Pupils: Normal accommodation - ENT ENT exam: Normal exam, Mucous membranes moist, Normal external ear exam, Normal orophraynx, TM's normal bilaterally Ear exam: Normal external inspection. negative: External canal tenderness Nasal Exam: Normal inspection. negative: Discharge, Sinus tenderness Mouth exam: Normal external inspection, Tongue normal Teeth exam: Normal inspection. negative: Dental caries Throat exam: Normal inspection. negative: Tonsillar erythema, Tonsillar exudate - Neck Neck exam: Normal inspection, Full ROM. negative: Tenderness - Respiratory Respiratory exam: Normal lung sounds bilaterally. negative: Respiratory distress - Cardiovascular Cardiovascular Exam: Regular rate, Normal rhythm, Normal heart sounds - GI/Abdominal GI/Abdominal exam: Soft, Normal bowel sounds, Tenderness (suprapubic) - Rectal Rectal exam: Deferred - exam: Vaginal erythema, Other (hysterectomy) - Extremities Extremities exam: Normal inspection, Full ROM, Normal capillary refill. negative: Tenderness - Back Back exam: Reports: Normal inspection, Full ROM. Denies: Muscle spasm, Rash noted, Tenderness - Neurological Neurological exam: Alert, Normal gait, Oriented X3, Reflexes normal - Psychiatric Psychiatric exam: Normal affect, Normal mood - Skin Skin exam: Dry, Intact, Normal color, Warm Course Vital Signs 03/01/19 11:54 Temperature 98.2 F Pulse Rate 108 H Respiratory 18 Rate Blood Pressure 129/87 Pulse Ox 98 - Reevaluation(s) Reevaluation #1: patient is concerned about vaginal infection and vaginitis so will do a pelvic exam. 03/01/19 15:06 Reevaluation #2: No sex in over 5 years 03/01/19 15:37 Medical Decision Making - Data Complexity MDM Data: Labs Ordered and/or Reviewed, X-Ray Ordered and/or Reviewed (ct negative of abd) - Lab Data Result diagrams: 03/01/19 12:55 03/01/19 12:55 Lab Results 03/01/19 Range/Units 12:05 Urine Color Yellow Urine Appearance Clear Urine pH 5.5 (5.0-8.0) Ur Specific [place] 1.025 (1.002-1.030) Urine Protein Negative (NEGATIVE) Urine Glucose (UA) 100 mg/dl H (NEGATIVE) Urine Ketones Trace H (NEGATIVE) Urine Blood Negative (NEGATIVE) Urine Nitrite Negative (NEGATIVE) Urine Bilirubin Small H (NEGATIVE) Urine Urobilinogen 0.2 (0.20 - 1.00) E.U./dL Ur Leukocyte Esterase Negative (NEGATIVE) Disposition Clinical Impression: Hyponatremia Abdominal pain Qualifiers: Abdominal location: left lower quadrant Qualified Code(s): R10.32 - Left lower quadrant pain Vaginitis Qualifiers: Chronicity: acute Qualified Code(s): N76.0 - Acute vaginitis Disposition: Home, Self-Care Condition: (1) Good Instructions: Vaginitis (ED), Abdominal Pain (ED), Vaginal Atrophy (ED) Additional Instructions: follow up with family Dr in one week bentyl three times a day use more foods high in salt Prescriptions: Miconazole Nitrate [Monistat 7] 1 applic VG QHS #7 cmb.pf.crm Dicyclomine HCl [Bentyl] 10 mg PO Q8H #30 cap Forms: Patient Portal Access Time of Disposition: 15:03 Quality - Quality Measures Quality Measures: N/A - Blood Pressure Screening Does Patient Have Any of the Following: No Blood Pressure Classification: Pre-Hypertensive BP Reading Systolic Measurement: 129 Diastolic Measurement: 87 Screening for High Blood Pressure: < Pre-Hypertensive BP, F/U Documented > [G8950] Pre-Hypertensive Follow-up Interventions: Referral to alternative/primary care provider.
[2019-03-01 13:00] LABS: ABSOLUTE NEUTROPHIL COUNT 5.23; BASO % 0.3 % (0-6); EOS % 0.8 % (0-6); HEMATOCRIT 37.2 % (35.0-47.0); HEMOGLOBIN 12.6 gm/dl (11.6-16.0); LYMPH % 13.4 % (16-45); MEAN CELL VOLUME 84.9 fl (81-97); MEAN CORPUSCULAR HEMOGLOBIN 28.8 pg (27-33); MEAN CORPUSCULAR HGB CONC 33.9 g/dl (32-36); MONO % 6.5 % (0-9); PLATELET COUNT 318 K/uL (130-400); RED BLOOD COUNT 4.38 M/uL (3.80-5.40); RED CELL DISTRIBUTION WIDTH 12.3 % (11.5-14.5); WHITE BLOOD COUNT W/O DIFF 6.6 K/uL (4.2-12.2)
[2019-03-01 13:17] LABS: BLOOD UREA NITROGEN 16 mg/dL (6-20); CREATININE 0.6 mg/dL (0.5-0.9); EST GLOMERULAR FILTRATION RATE > 60 mL/min
[2019-03-01 13:18] LABS: LIPASE 19 U/L (13-60); TOTAL PROTEIN 7.7 g/dL (6.6-8.7)
[2019-03-01 13:20] LABS: GLUCOSE,RANDOM 188 mg/dL (74-109)
[2019-03-01 13:22] LABS: ALT/SGPT 25 U/L (<33); AST/SGOT 22 U/L (10.0-35.0)
[2019-03-01 13:23] LABS: ALKALINE PHOSPHATASE 85 U/L (35-104); BILIRUBIN,DIRECT < 0.2 mg/dL (0-0.3)
--- NOTE | 2019-03-01 14:49 | CT SCAN REPORT ---
EXAMINATION: CT Abdomen and Pelvis without IV Contrast EXAM DATE: 03/01/2019 2:25 PM TECHNIQUE: Standard protocol CT imaging of the abdomen and pelvis was performed without intravenous c ontrast. INDICATION: left lower quad pain COMPARISON: None ENCOUNTER: Not applicable CT ABDOMEN AND PELVIS FINDINGS: Lung Bases: Included extent of the lung bases are clear. Hepatobiliary: Noncontrast appearance of the liver is within normal limits. Gallbladder is present. Pancreas: The pancreas is normal. Spleen: The spleen is not enlarged. Soft tissue nodular density measuring 1.6 cm seen medial to the a nterior spleen likely representing a splenule. Adrenals: The adrenal glands are normal. Kidneys, Ureters, & Bladder: Kidneys show no evidence for hydronephrosis or perinephric fluid collect ion. No obstructing renal calculi. Ureter showing normal course and caliber bilaterally. Urinary blad denisse is unremarkable. Gastrointestinal: The stomach and small bowel are normal with no obstruction or inflammation. Moderat e amount of stool throughout the colon Reproductive Organs: Uterus is not identified Lymphatic System: There is no pathologically enlarged adenopathy within the abdomen or pelvis. Vasculature: Normal caliber abdominal aorta Peritoneum: No free fluid, free air, or inflammation Abdominal wall & Musculoskeletal: No suspicious bone lesions. Assessment of the solid organs, soft tissues, and vascular structures is markedly limited on noncontr ast imaging, IMPRESSION: Nonobstructed bowel with moderate amount of stool throughout the colon suggesting some degree of cons tipation. Soft tissue nodular density medial to the spleen likely representing a splenule. No hydronephrosis. No calcified renal or ureteral calculi. Additional findings as detailed above Dictated by: Stephen Ceballos MD on 03/01/2019 2:34 PM. .
[2019-03-02 22:26] LABS: GC SPECIMEN TYPE Vaginal
== END 2019-03-01 16:03 | disposition home or self-care (01) ==
LOC: ER 11:42
DX: E87.1 Hypo-osmolality and hyponatremia (principal); N76.0 Acute vaginitis; R10.32 Left lower quadrant pain; R11.2 Nausea with vomiting, unspecified; R51 Headache; Z87.891 Personal history of nicotine dependence; I10 Essential (primary) hypertension; J44.9 Chronic obstructive pulmonary disease, unspecified
CPT/HCPCS: 74176; 80048; 80076; 81003; 83690; 85025; 87210; 96361; 96374; 99284; J2405; J7030